=== PATIENT | female | born 1935 | race Caucasian/White ===

== ENCOUNTER 2016-07-30 21:54 | Inpatient (IN) | payer MEDICARE, OTHER ==
--- NOTE | 2016-07-30 22:48 | ED Physician Chart ---
Chief Complaint/HPI - Patient Information Date Seen:: 07/30/16 Time Seen:: 22:35 Chief Complaint:: agitation History of Present Illness:: becoming increasingly agitated at SNF. Allergies:: Allergies Allergy/AdvReac Type Severity Reaction Status Date / Time pneumococcal vaccine Allergy Verified 07/30/16 22:24 Historian:: EMS Review:: Transfer documents Reviewed Review of Systems - Review of Systems General/Constitutional: No fever, No chills Skin: No skin lesions Head: No headache, No light-headedness Eyes: No loss of vision, No pain ENT: No earache, No nasal drainage, No sore throat Cardio Vascular: No chest pain Pulmonary: No SOB GI: No nausea, No vomiting G/U: No dysuria, No frequency Musculoskeletal: No bone or joint pain Endocrine: No polyuria, No polydipsia Psychiatric: Prior psych history Hematopoietic: No bruising Allergic/Immuno: No urticaria, No angioedema Neurological: No syncope, No focal symptoms Past Medical History - Past Medical History Past Medical History: DM, PUD/GERD, Arthritis, Dementia, Other (dysphagia; Parkinson's disease) Family History: Other (unavailable) Social History: Care Facility Surgical History: other (unavailable) Psychiatricy History: Dementia Medication: Reviewed Family Medical History - Family Member Mother History Unknown: Yes Physical Exam - Physical Examination General/Constitutional: Awake Other Gen/Cons comments:: restless Head: Atraumatic Eyes: Lids, conjuctiva normal Skin: Nl inspection, No rash, No skin lesions, No ecchymosis ENMT: External ears, nose nl, TM canals nl, Nasal exam nl Other ENMT comments:: edentulous Neck: No nuchal rigidity Respiratory: Nl effort/Exclusion, Clear to Auscultation Cardio Vascular: RRR, No murmur, gallop, rubs, NL S1 S2 GI: No tenderness/rebounding/guarding, No organomegaly, No hernia, Normal BS's, Nondistended, No mass/bruits, No McBurney tenderness : No CVA tenderness Extremities: No tenderness or effusion, Full ROM Neuro/Psych: Alert/oriented, No focal deficits Misc: No paraspinal tenderness Labs/Radiology/EKG Results - Lab Results Results: Laboratory Results - last 24 hr 07/30/16 07/30/16 22:50 22:50 WBC 9.8 RBC 4.24 Hgb 12.5 Hct 36.2 MCV 85.5 MCH 29.6 MCHC Differential 34.6 RDW 13.7 Plt Count 250 D MPV 8.6 Neutrophils % 59.1 Lymphocytes % 32.9 Monocytes % 7.4 Eosinophils % 0.3 Basophils % 0.3 Sodium 137 Potassium 4.0 Chloride 103 Carbon Dioxide 26.5 Anion Gap 11.5 BUN 28 H Creatinine 0.8 Est GFR ( Amer) TNP Est GFR (Non-Af Amer) TNP BUN/Creatinine Ratio 35.0 Glucose 155 H Calcium 10.4 H Total Bilirubin 0.4 AST 23 ALT 15 Alkaline Phosphatase 70 Total Protein 7.6 Albumin 4.1 Globulin 3.5 Albumin/Globulin Ratio 1.2 - EKG Interpretations Rhythm: NSR [place]: normal Rate: 90 ED Septic Shock - . Is Septic Shock (SBP<90, OR Lactate>4 mmol\L) present?: No Reassessment (Disposition) - Reassessment Reassessment Condition:: Unchanged - Diagnosis Diagnosis:: agitation; dementia - Patient Disposition Admitted to:: [facility] Admitting Medical Physician:: Trevor Holland Admitting Psych Physician:: Patricia Caruso
[2016-07-30 22:55] LABS: RED BLOOD COUNT 4.24 Mil/cmm (3.80-5.20)
[2016-07-30 22:57] LABS: % BASOPHILS 0.3 % (0.0-2.0); % EOSINOPHILS 0.3 % (0.0-5.0); % LYMPHOCYTES 32.9 % (20.0-50.0); % MONOCYTES 7.4 % (2.0-10.0); % NEUTROPHILS 59.1 % (40.0-80.0); HEMATOCRIT 36.2 % (35.0-45.0); HEMOGLOBIN 12.5 gm/dL (11.7-16.1); MEAN CELL VOLUME 85.5 fl (81-100); MEAN CORPUSCULAR HEMOGLOBIN 29.6 pg (27.0-31.0); MEAN CORPUSCULAR HGB CONC 34.6 pg (28.0-36.0); MEAN PLATELET VOLUME 8.6 fl; NEUTROPHILE ABSOLUTE 5.9 Th/cmm (1.8-8.0); RED CELL DISTRIBUTION WIDTH 13.7 % (11.5-20.0); WHITE BLOOD COUNT 9.8 Th/cmm (4.8-10.8)
[2016-07-30 23:02] LABS: PLATELET COUNT 250 Th/cmm (150-400)
[2016-07-30 23:13] LABS: ALB/GLOB RATIO 1.2 (1.0-1.8); ALKALINE PHOSPHATASE 70 U/L (34-104); ANION GAP 11.5 (7.0-16.0); BILIRUBIN,TOTAL 0.4 mg/dL (0.3-1.0); BUN - UREA NITROGEN 28 mg/dL (7-25); CALCIUM SERUM 10.4 mg/dL (8.6-10.3); CARBON DIOXIDE 26.5 mEq/L (21.0-31.0); CHLORIDE 103 mEq/L (98-107); CREATININE - SERUM 0.8 mg/dL (0.6-1.2); GLUCOSE 155 mg/dL (70-105); SGOT 23 U/L (13-39); SGPT/ALT 15 U/L (7-52); SODIUM SERUM 137 mEq/L (136-145)
[2016-07-31] MEDS ORDERED: MINERAL OIL ENEMA 135 ML BOTTLE RC PRN (03:11)
[2016-07-31] MEDS ORDERED: Magnesium Hydroxide (MOM) 30 mL UDC PO PRN (03:11)
[2016-07-31 03:36] VITALS: BP 151/70
[2016-07-31] MEDS: INSULIN ASPART SLIDING SCALE 100 UNITS/ML UNIT SUBQ SCH ×4 (06:37→20:25)
[2016-07-31] MEDS ORDERED: INSULIN ASPART, RECOMBINANT 100 UNITS/ML SUBQ SCH (07:30)
[2016-07-31] MEDS: Vitamin D3 2,000 IU SGL PO SCH (09:32)
[2016-07-31] MEDS: Multivitamin Tab PO SCH (09:32)
[2016-07-31] MEDS: Rivastigmine 4.6 mg/24 hr Tdm TD SCH (09:32)
[2016-07-31] MEDS: INSULIN HUMAN ISOPHANE (NPH) 100 UNITS/ML SUBQ SCH ×2 (09:49→17:34)
--- NOTE | 2016-07-31 11:05 | History & Physical ---
PATIENT IDENTIFICATION: An 80-year-old female. REQUESTING PHYSICIAN: Dr. Caruso. REASON FOR ADMISSION: Medical management. HISTORY OF PRESENT ILLNESS: An 80-year-old resident of retirement sent to Emergency Room at [facility] for evaluation of increasing agitation after being evaluated by Emergency Room MD. The patient is advised to be admitted for psychiatric management and underlying dementia evaluation. PAST MEDICAL HISTORY: Remarkable for: 1. Alzheimer's type dementia. 2. Parkinson disease. 3. GERD. 4. Diabetes. 5. DJD. 6. Depression. 7. Chronic constipation. 8. Osteoporosis. MEDICATIONS: Tylenol, bisacodyl, Sinemet, vitamin D3, Depakote, Colace, famotidine, sliding scale insulin with NPH, lorazepam, magnesium sulfate, mineral oil, mirtazapine, oxybutynin, ____ Exelon patch and tramadol. ALLERGIES: THE PATIENT IS QUESTIONABLE ALLERGIC TO PNEUMOCOCCAL VACCINE. SOCIAL HISTORY: She is a resident of retirement. There is no documented smoking cigarette, alcohol or drug use. FAMILY MEDICAL HISTORY: Unavailable. REVIEW OF SYSTEMS: Unable to get meaningful history from the patient. PHYSICAL EXAMINATION: GENERAL: An 80-year-old lying in the bed without any acute distress. VITAL SIGNS: Temperature 97.8, pulse is 93, respiratory rate 18, blood pressure 151/70. SKIN: Warm to touch. HEENT: Normocephalic, atraumatic. Extraocular muscles are intact. Tongue was pink and coated. Absent upper and lower dentition noted. NECK: Supple, no JVD, no lymphadenopathy, thyromegaly. HEART: Both heart sounds are regular. Grade 2/6 systolic murmur noted. CHEST AND LUNGS: Equal in expansion with no expiratory wheezing. ABDOMEN: Soft. No guarding, no rigidity. Liver, spleen not palpable. No palpable mass. EXTREMITIES: No edema, no cyanosis. Diffuse osteoarthritic changes noted. NEUROLOGIC: Alert, awake. Follows simple commands. Decreased ____ upper and lower noted with some degree of spasticity. Unable to assess further detail examinations due to high risk for fall. AVAILABLE DIAGNOSTIC DATA: Remarkable for TSH of 7.21, calcium of 10.4, BUN and creatinine is 20 and 0.8. CBC is within normal limit. The patient's other diagnostic data are currently unavailable. CLINICAL IMPRESSION: 1. Acute exacerbation of psychotic disorder. 2. Alzheimer dementia. 3. Parkinson disease. 4. Diabetes mellitus. 5. Degenerative joint disease. 6. Urinary incontinence. 7. Chronic pain. 8. Osteoporosis. 9. Fall risk. 10. Declining self-care. PLAN: 1. Psychiatric evaluation and management deferred to psychiatrist. 2. Resume the home medicine as patient receiving. We will order Glucoscan a.c. and at bedtime with covering the blood through sliding scale, NovoLog insulin. The patient's psychiatric evaluation and management deferred to psychiatrist. The patient is to have fall precautions, Nutritional support and the patient will have T4, T3 and TSH to be rechecked again and based on that, we will decide if the patient needs to be placed on thyroid medication this time. Care plan has been reviewed and discussed with the staff. JOB# [id number]
--- NOTE | 2016-07-31 16:54 | History & Physical ---
IDENTIFYING INFORMATION: The patient is 80 years old female. CHIEF COMPLAINT: No answer. HISTORY OF PRESENT ILLNESS: The patient was sent from [facility] because of agitated behavior. She was aggressive towards peers, not responding to redirection. Unable to participate in a meaningful conversation or make safe plan for self-care. She is demented, confused. The patient was a very poor historian though she was alert. She was rambling, unable to participate in a meaningful conversation or make safe plan for self-care. PAST PSYCHIATRIC HISTORY: The patient has prior hospitalization here for similar reason. The patient has been on Remeron, Depakote, and Mirapex. ALLERGIES: THE PATIENT IS ALLERGIC TO PNEUMOCOCCAL VACCINE. No other known drug allergies. MEDICATIONS: She is on Pepcid. She is on Sinemet. She is also diabetic on insulin. She is on Namenda 5 mg daily, Remeron 15 mg at bedtime, Exelon patch daily, and tramadol for pain. FAMILY AND SOCIAL HISTORY: The patient is unable to give any information. She has been staying in a nursing facility. MENTAL STATUS EXAMINATION: The patient is appropriately dressed, not well groomed. Her mood is depressed. Affect is constricted. Thoughts are concrete. Speech is rambling, unable to carry on a conversation or make safe plan for self-care. She has been acting out, aggressive, irritable, hitting peers and staff, hard to redirect. Her long and short term memory is poor. Insight and judgment is impaired. Unable to answer questions about hallucination, suicide and homicide, but she was acting aggressive towards peers. Insight and judgment are impaired. IMPRESSION: AXIS I: Dementia with behavioral disturbances and depression. MEDICAL DIAGNOSES: Deferred to the medical doctor. I would continue medication, adjust medication as needed. ESTIMATED LENGTH OF STAY: 3-7 days. DISCHARGE CRITERIA: Decrease agitation, psychosis after discharge outpatient. [facility]# [id number]
[2016-08-01] MEDS: INSULIN ASPART SLIDING SCALE 100 UNITS/ML UNIT SUBQ SCH ×4 (06:52→21:55)
[2016-08-01 07:42] LABS: HEMATOCRIT 35.3 % (35.0-45.0); HEMOGLOBIN 12.2 gm/dL (11.7-16.1); MEAN CELL VOLUME 85.9 fl (81-100); MEAN CORPUSCULAR HEMOGLOBIN 29.7 pg (27.0-31.0); MEAN CORPUSCULAR HGB CONC 34.6 pg (28.0-36.0); MEAN PLATELET VOLUME 8.7 fl; PLATELET COUNT 233 Th/cmm (150-400); RED BLOOD COUNT 4.11 Mil/cmm (3.80-5.20); WHITE BLOOD COUNT 8.5 Th/cmm (4.8-10.8)
[2016-08-01 08:08] LABS: ALB/GLOB RATIO 1.2 (1.0-1.8); ALKALINE PHOSPHATASE 65 U/L (34-104); BILIRUBIN,TOTAL 0.6 mg/dL (0.3-1.0); BUN - UREA NITROGEN 32 mg/dL (7-25); BUN/CREATININE RATIO 35.6; CARBON DIOXIDE 23.9 mEq/L (21.0-31.0); CHLORIDE 109 mEq/L (98-107); CREATININE - SERUM 0.9 mg/dL (0.6-1.2); GLUCOSE 101 mg/dL (70-105); POTASSIUM SERUM 3.9 mEq/L (3.5-5.1); SGOT 21 U/L (13-39); SGPT/ALT 14 U/L (7-52); SODIUM SERUM 137 mEq/L (136-145)
[2016-08-01] MEDS: Rivastigmine 4.6 mg/24 hr Tdm TD SCH (08:29)
[2016-08-01] MEDS: Vitamin D3 2,000 IU SGL PO SCH (08:32)
[2016-08-01] MEDS: Multivitamin Tab PO SCH (08:34)
[2016-08-01] MEDS: INSULIN HUMAN ISOPHANE (NPH) 100 UNITS/ML SUBQ SCH ×2 (08:34→18:28)
[2016-08-01 09:00] LABS: EOSINOPHIL 3 % (0-5); NEUTROPHILS 33 % (40-80); TOTAL CELLS COUNTED 100
[2016-08-01 09:01] LABS: PLATELET ESTIMATE ADEQUATE (NORMAL); PLATELET MORPHOLOGY NORMAL (NORMAL)
--- NOTE | 2016-08-01 12:47 | General Progress Note ---
Subjective - Review of Systems Subjective: PATIENT IS SEEN AND EXAMINED. NO NEW EVENTS. Objective - Results Result Diagrams: 08/01/16 07:14 08/01/16 07:14 Recent Labs: Laboratory Last Values WBC 8.5 Th/cmm (4.8-10.8) 08/01/16 07:14 RBC 4.11 Mil/cmm (3.80-5.20) 08/01/16 07:14 Hgb 12.2 gm/dL (11.7-16.1) 08/01/16 07:14 Hct 35.3 % (35.0-45.0) 08/01/16 07:14 MCV 85.9 fl (81-100) 08/01/16 07:14 MCH 29.7 pg (27.0-31.0) 08/01/16 07:14 MCHC Differential 34.6 pg (28.0-36.0) 08/01/16 07:14 RDW 14.0 % (11.5-20.0) 08/01/16 07:14 Plt Count 233 Th/cmm (150-400) 08/01/16 07:14 MPV 8.7 fl 08/01/16 07:14 Neutrophils % 59.1 % (40.0-80.0) 07/30/16 22:50 Lymphocytes % 32.9 % (20.0-50.0) 07/30/16 22:50 Monocytes % 7.4 % (2.0-10.0) 07/30/16 22:50 Eosinophils % 0.3 % (0.0-5.0) 07/30/16 22:50 Basophils % 0.3 % (0.0-2.0) 07/30/16 22:50 Neutrophils (Manual) 33 % (40-80) L 08/01/16 07:14 Lymphocytes 45 % (20-50) 08/01/16 07:14 Monocytes 13 % (2-10) H 08/01/16 07:14 Eosinophils 3 % (0-5) 08/01/16 07:14 Atypical Lymphocytes 6 % 08/01/16 07:14 Platelet Estimate ADEQUATE (NORMAL) 08/01/16 07:14 Platelet Morphology NORMAL (NORMAL) 08/01/16 07:14 RBC Morph Micro Appear NORMAL (NORMAL) 08/01/16 07:14 Sodium 137 mEq/L (136-145) 08/01/16 07:14 Potassium 3.9 mEq/L (3.5-5.1) 08/01/16 07:14 Chloride 109 mEq/L (98-107) H 08/01/16 07:14 Carbon Dioxide 23.9 mEq/L (21.0-31.0) 08/01/16 07:14 Anion Gap 8.0 (7.0-16.0) 08/01/16 07:14 BUN 32 mg/dL (7-25) H 08/01/16 07:14 Creatinine 0.9 mg/dL (0.6-1.2) 08/01/16 07:14 Est GFR ( Amer) TNP 08/01/16 07:14 Est GFR (Non-Af Amer) TNP 08/01/16 07:14 BUN/Creatinine Ratio 35.6 08/01/16 07:14 Glucose 101 mg/dL (70-105) 08/01/16 07:14 POC Glucose 102 MG/DL (70 - 105) 08/01/16 11:07 Calcium 10.0 mg/dL (8.6-10.3) 08/01/16 07:14 Total Bilirubin 0.6 mg/dL (0.3-1.0) 08/01/16 07:14 AST 21 U/L (13-39) 08/01/16 07:14 ALT 14 U/L (7-52) 08/01/16 07:14 Alkaline Phosphatase 65 U/L (34-104) 08/01/16 07:14 Total Protein 7.1 gm/dL (6.0-8.3) 08/01/16 07:14 Albumin 3.8 gm/dL (3.7-5.3) 08/01/16 07:14 Globulin 3.3 gm/dL 08/01/16 07:14 Albumin/Globulin Ratio 1.2 (1.0-1.8) 08/01/16 07:14 Free T4 1.22 ng/dL (0.82-1.77) 07/31/16 12:46 Thyroxine (T4) 10.22 ug/dl (6.09-12.23) 07/31/16 09:35 TSH 7.21 uIU/ml (0.34-5.60) H 07/30/16 22:50 RPR NONREACTIVE (NONREACTIVE) 07/30/16 22:50 - Physical Exam Vitals and I&O: Vital Signs Temp 98.1 F 07/31/16 19:58 Pulse 70 07/31/16 19:58 Resp 20 07/31/16 19:58 BP 130/61 07/31/16 19:58 Pulse Ox 97 07/31/16 19:58 Intake & Output 07/31/16 08/01/16 08/01/16 18:59 06:59 18:59 Intake Total 600 240 Balance 600 240 Intake: Oral 600 240 Other: # Voids 3 1 # Bowel Movements 0 Active Medications: Current Medications Acetaminophen (Tylenol) 650 mg PO Q4HR PRN PRN Reason: Pain (Mild) Stop: 09/29/16 03:10 Bisacodyl (Dulcolax 10 Mg Supp) 10 mg RC DAILY PRN PRN Reason: Constipation Stop: 09/29/16 03:10 Carbidopa/Levodopa (Sinemet 25mg-100 Mg) 1 tab PO BID [facility] Stop: 09/29/16 08:59 Last Admin: 08/01/16 08:32 Dose: Not Given Divalproex Sodium (Depakote Sprinkle) 250 mg PO BID [facility] PRN Reason: Protocol Stop: 09/29/16 08:59 Last Admin: 08/01/16 08:32 Dose: Not Given Docusate Sodium (Colace) 200 mg PO BID [facility] Stop: 09/29/16 08:59 Last Admin: 08/01/16 08:32 Dose: Not Given Famotidine (Pepcid) 20 mg PO BID [facility] Stop: 09/29/16 08:59 Last Admin: 08/01/16 08:32 Dose: Not Given Insulin Aspart (Novolog Insulin Sliding Scale) 0 units SUBQ ACHS [facility] PRN Reason: Protocol Stop: 09/29/16 07:29 Last Admin: 08/01/16 11:18 Dose: Not Given Insulin Human NPH (Novolin N) 15 units SUBQ BID [facility] PRN Reason: Protocol Stop: 09/29/16 08:59 Last Admin: 08/01/16 08:34 Dose: Not Given Lorazepam (Ativan) 0.5 mg PO BID [facility] PRN Reason: Protocol Stop: 09/30/16 08:59 Last Admin: 08/01/16 08:34 Dose: Not Given Magnesium Hydroxide (Milk Of Magnesia) 30 ml PO HS PRN PRN Reason: Constipation Stop: 09/29/16 03:10 Memantine (Namenda) 5 mg PO DAILY [facility] Stop: 09/29/16 08:59 Last Admin: 08/01/16 08:34 Dose: Not Given Mineral Oil (Fleet Mineral Oil) 135 ml RC Q48HR PRN PRN Reason: Constipation Stop: 09/29/16 03:10 Mirtazapine (Remeron) 15 mg PO HS [facility] PRN Reason: Protocol Stop: 09/29/16 20:59 Last Admin: 07/31/16 20:25 Dose: 15 mg Multivitamins/Vitamin C (Theragran) 1 tab PO DAILY [facility] Stop: 09/29/16 08:59 Last Admin: 08/01/16 08:34 Dose: Not Given Oxybutynin Chloride (Ditropan) 5 mg PO HS [facility] Stop: 09/29/16 20:59 Last Admin: 07/31/16 20:25 Dose: 5 mg Pramipexole Dihydrochloride (Mirapex) 0.5 mg PO HS [facility] PRN Reason: Protocol Stop: 09/29/16 20:59 Last Admin: 07/31/16 20:25 Dose: 0.5 mg Rivastigmine (Exelon 4.6 Mg/24 Hr Tdm) 1 patch TD DAILY [facility] Stop: 09/29/16 08:59 Last Admin: 08/01/16 08:29 Dose: 1 patch Tramadol HCl (Ultram) 50 mg PO BID [facility] Stop: 09/29/16 08:59 Last Admin: 08/01/16 08:34 Dose: Not Given Vitamin D (Vitamin D3) 2,000 iu PO DAILY [facility] Stop: 09/29/16 08:59 Last Admin: 08/01/16 08:32 Dose: Not Given Zolpidem Tartrate (Ambien) 5 mg PO HS PRN PRN Reason: Insomnia Stop: 09/29/16 04:13 General: Alert, Cooperative HEENT: Atraumatic, EOMI Neck: Supple, JVD Cardiovascular: Regular rate, Normal S1, Normal S2 Lungs: Clear to auscultation Abdomen: Bowel sounds, Soft Extremities: Other (diffuse DJD) Psych/Mental Status: Other (labile moods) Assessment/Plan - Problem List Patient Problems: All Active Problems Agitation (Acute) 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 FALL RISK DEBILITY. - Plan Plan: MONITOR GLUCOSE AND VITALS MONITOR BEHAVIOR GENERAL NURSING CARE MEDICAL THERAPY FOR MEDICAL ILLNESS PSYCH MEDS PSYCH FOLLOW UP CARE PLAN REVIEWED FALL PRECAUTIONS.
[2016-08-01 18:45] LABS: HEMATOCRIT 38.7 % (35.0-45.0); MEAN CELL VOLUME 87.6 fl (81-100); MEAN CORPUSCULAR HEMOGLOBIN 29.5 pg (27.0-31.0); MEAN CORPUSCULAR HGB CONC 33.7 pg (28.0-36.0); MEAN PLATELET VOLUME 8.8 fl; PLATELET COUNT 271 Th/cmm (150-400); RED BLOOD COUNT 4.41 Mil/cmm (3.80-5.20); WHITE BLOOD COUNT 9.7 Th/cmm (4.8-10.8)
[2016-08-01 18:46] LABS: ALB/GLOB RATIO 1.2 (1.0-1.8); ALKALINE PHOSPHATASE 73 U/L (34-104); ANION GAP 10.9 (7.0-16.0); BILIRUBIN,TOTAL 0.6 mg/dL (0.3-1.0); BUN - UREA NITROGEN 31 mg/dL (7-25); BUN/CREATININE RATIO 38.8; CALCIUM SERUM 10.6 mg/dL (8.6-10.3); CARBON DIOXIDE 24.1 mEq/L (21.0-31.0); CHLORIDE 107 mEq/L (98-107); CREATININE - SERUM 0.8 mg/dL (0.6-1.2); GLUCOSE 115 mg/dL (70-105); SGOT 19 U/L (13-39); SGPT/ALT 16 U/L (7-52); SODIUM SERUM 138 mEq/L (136-145)
[2016-08-01 19:07] LABS: BAND NEUTROPHILE 2 % (0-10); BASOPHIL 1 % (0-3); NEUTROPHILS 38 % (40-80); TOTAL CELLS COUNTED 100
[2016-08-01 19:09] LABS: PLATELET ESTIMATE ADEQUATE (NORMAL); PLATELET MORPHOLOGY NORMAL (NORMAL)
[2016-08-01 19:32] LABS: URINE BILIRUBIN NEGATIVE (NEGATIVE); URINE COLOR YELLOW; URINE GLUCOSE (UA) NEGATIVE (NEGATIVE); URINE KETONE 40 mg/dL (NEGATIVE)
[2016-08-01 19:33] LABS: URINE BLOOD LARGE (NEGATIVE); URINE PH 8.5; URINE PROTEIN >300 mg/dL (NEGATIVE); URINE UROBILINOGEN 0.2 E.U./dL (0.2 - 1.0)
[2016-08-01 19:34] LABS: URINE BACTERIA MANY /hpf (NONE SEEN); URINE EPITHELIAL CELLS FEW /lpf (FEW)
[2016-08-01 19:35] LABS: URINE WBC >100 /hpf (0-5)
--- NOTE | 2016-08-02 00:16 | Progress Notes ---
SUBJECTIVE: The patient was seen, chart reviewed, and discussed with staff. The patient is currently in the hospital, agitated, aggressive, not responding to redirection, demented, confused, poor historian, rambling, unable to participate in any meaningful conversation. On [id number], the patient remains confused and disoriented. Does not really know what is going on, not really participating in interview whatsoever, a poor historian, requiring a lot of prompting for ADLs, requiring prompting for eating, still remains impulsive, unpredictable, still with acting up behaviors. Not safe. ASSESSMENT: The patient remains symptomatic. Still aggressive, agitated, impulsive, unpredictable, and highly confused. PLAN: Continue to monitor. We will continue to adjust her medications. Given the severity of the patient's current symptoms, she is not safe for a lower level of care. JOB# [id number]
[2016-08-02] MEDS: INSULIN ASPART SLIDING SCALE 100 UNITS/ML UNIT SUBQ SCH ×4 (06:39→21:20)
[2016-08-02] MEDS: Rivastigmine 4.6 mg/24 hr Tdm TD SCH (08:54)
--- NOTE | 2016-08-02 09:26 | Diagnostic Imaging Report ---
History: Chest pain and shortness of breath Findings: Heart size is enlarged. There is evidence of prior coronary artery surgery. There are no infiltrates or effusions. Impression: No acute cardiopulmonary pathology.
[2016-08-02] MEDS: INSULIN HUMAN ISOPHANE (NPH) 100 UNITS/ML SUBQ SCH ×2 (12:01→17:39)
[2016-08-02] MEDS: Vitamin D3 2,000 IU SGL PO SCH (12:01)
[2016-08-02] MEDS: Multivitamin Tab PO SCH (12:02)
--- NOTE | 2016-08-02 23:48 | Progress Notes ---
SUBJECTIVE: The patient seen, chart reviewed, discussed with staff. The patient is rambling nonsensically. Still confused, does not know what is going on. Unable to participate in any meaningful conversations about self-care, highly disoriented needing prompting for ADLs, needing prompting for eating, still impulsive. ASSESSMENT: The patient remains symptomatic, gravely disabled, still agitated at times, confused. PLAN: Continue to monitor. Continue to adjust medications. Due to the severity of the patient's symptoms, she is not safe for a lower level of care. At this time, the patient noted to have UTI. We will treat according. JOB# [id number]
[2016-08-03] MEDS: INSULIN ASPART SLIDING SCALE 100 UNITS/ML UNIT SUBQ SCH ×3 (06:36→21:03)
--- NOTE | 2016-08-03 08:46 | General Progress Note ---
Subjective - Review of Systems Subjective: PATIENT IS SEEN AND EXAMINED. CHART REVIEWED. ABLE TO EAT PO WELL. NOW ON CIPRO. Objective - Results Result Diagrams: 08/01/16 18:25 08/01/16 18:25 Recent Labs: Laboratory Last Values WBC 9.7 Th/cmm (4.8-10.8) 08/01/16 18: RBC 4.41 Mil/cmm (3.80-5.20) 08/01/16 18: Hgb 13.0 gm/dL (11.7-16.1) 08/01/16 18: Hct 38.7 % (35.0-45.0) 08/01/16 18: MCV 87.6 fl (81-100) 08/01/16 18: MCH 29.5 pg (27.0-31.0) 08/01/16 18: MCHC Differential 33.7 pg (28.0-36.0) 08/01/16 18: RDW 14.0 % (11.5-20.0) 08/01/16 18: Plt Count 271 Th/cmm (150-400) 08/01/16 18:25 MPV 8.8 fl 08/01/16 18: Neutrophils % 59.1 % (40.0-80.0) 07/30/16 22:50 Band Neutrophils % 2 % (0-10) 08/01/16 18:25 Lymphocytes % 32.9 % (20.0-50.0) 07/30/16 22:50 Monocytes % 7.4 % (2.0-10.0) 07/30/16 22:50 Eosinophils % 0.3 % (0.0-5.0) 07/30/16 22:50 Basophils % 0.3 % (0.0-2.0) 07/30/16 22:50 Neutrophils (Manual) 38 % (40-80) L 08/01/16 18: Lymphocytes 48 % (20-50) 08/01/16 18:25 Monocytes 4 % (2-10) 08/01/16 18:25 Eosinophils 3 % (0-5) 08/01/16 07:14 Basophils 1 % (0-3) 08/01/16 18: Atypical Lymphocytes 7 % 08/01/16 18:25 Platelet Estimate ADEQUATE (NORMAL) 08/01/16 18:25 Platelet Morphology NORMAL (NORMAL) 08/01/16 18:25 RBC Morph Micro Appear NORMAL (NORMAL) 08/01/16 18:25 Sodium 138 mEq/L (136-145) 08/01/16 18:25 Potassium 4.0 mEq/L (3.5-5.1) 08/01/16 18:25 Chloride 107 mEq/L (98-107) 08/01/16 18:25 Carbon Dioxide 24.1 mEq/L (21.0-31.0) 08/01/16 18:25 Anion Gap 10.9 (7.0-16.0) 08/01/16 18:25 BUN 31 mg/dL (7-25) H 08/01/16 18:25 Creatinine 0.8 mg/dL (0.6-1.2) 08/01/16 18:25 Est GFR ( Amer) TNP 08/01/16 18:25 Est GFR (Non-Af Amer) TNP 08/01/16 18:25 BUN/Creatinine Ratio 38.8 08/01/16 18:25 Glucose 115 mg/dL (70-105) H 08/01/16 18:25 POC Glucose 118 MG/DL (70 - 105) H 08/03/16 06:21 Calcium 10.6 mg/dL (8.6-10.3) H 08/01/16 18:25 Total Bilirubin 0.6 mg/dL (0.3-1.0) 08/01/16 18:25 AST 19 U/L (13-39) 08/01/16 18:25 ALT 16 U/L (7-52) 08/01/16 18:25 Alkaline Phosphatase 73 U/L (34-104) 08/01/16 18:25 Total Protein 7.7 gm/dL (6.0-8.3) 08/01/16 18:25 Albumin 4.2 gm/dL (3.7-5.3) 08/01/16 18:25 Globulin 3.5 gm/dL 08/01/16 18:25 Albumin/Globulin Ratio 1.2 (1.0-1.8) 08/01/16 18:25 Free T4 1.22 ng/dL (0.82-1.77) 07/31/16 12:46 Thyroxine (T4) 10.22 ug/dl (6.09-12.23) 07/31/16 09:35 TSH 7.21 uIU/ml (0.34-5.60) H 07/30/16 22:50 Urine Source CATH 08/01/16 18:15 Urine Color YELLOW 08/01/16 18:15 Urine Clarity CLOUDY (CLEAR) H 08/01/16 18:15 Urine pH 8.5 08/01/16 18:15 Ur Specific [place] 1.025 (1.005-1.030) 08/01/16 18:15 Urine Protein >300 mg/dL (NEGATIVE) H 08/01/16 18:15 Urine Glucose (UA) NEGATIVE mg/dL (NEGATIVE) 08/01/16 18:15 Urine Ketones 40 mg/dL (NEGATIVE) H 08/01/16 18:15 Urine Blood LARGE (NEGATIVE) H 08/01/16 18:15 Urine Nitrate POSITIVE (NEGATIVE) H 08/01/16 18:15 Urine Bilirubin NEGATIVE (NEGATIVE) 08/01/16 18:15 Urine Urobilinogen 0.2 E.U./dL (0.2 - 1.0) 08/01/16 18:15 Ur Leukocyte Esterase LARGE (NEGATIVE) H 08/01/16 18:15 Urine RBC 10-25 /hpf (0-5) H 08/01/16 18:15 Urine WBC >100 /hpf (0-5) H 08/01/16 18:15 Ur Epithelial Cells FEW /lpf (FEW) 08/01/16 18:15 Urine Bacteria MANY /hpf (NONE SEEN) 08/01/16 18:15 RPR NONREACTIVE (NONREACTIVE) 07/30/16 22:50 - Physical Exam Vitals and I&O: Vital Signs Temp 97.4 F 08/03/16 06:34 Pulse 69 08/03/16 06:34 Resp 18 08/03/16 06:34 BP 125/76 08/03/16 06:34 Pulse Ox 96 08/03/16 06:34 Intake & Output 08/02/16 08/03/16 08/03/16 18:59 06:59 18:59 Intake Total 500 0 Balance 500 0 Intake: Oral 500 0 Other: # Voids 3 3 # Bowel Movements 1 Active Medications: Current Medications Acetaminophen (Tylenol) 650 mg PO Q4HR PRN PRN Reason: Pain (Mild) Stop: 09/29/16 03:10 Bisacodyl (Dulcolax 10 Mg Supp) 10 mg RC DAILY PRN PRN Reason: Constipation Stop: 09/29/16 03:10 Last Admin: 08/02/16 12:54 Dose: 10 mg Carbidopa/Levodopa (Sinemet 25mg-100 Mg) 1 tab PO BID [facility] Stop: 09/29/16 08:59 Last Admin: 08/02/16 18:24 Dose: Not Given Ciprofloxacin (Cipro) 250 mg PO BID [facility] Stop: 08/11/16 09:00 Last Admin: 08/02/16 18:24 Dose: Not Given Divalproex Sodium (Depakote Sprinkle) 250 mg PO BID [facility] PRN Reason: Protocol Stop: 09/29/16 08:59 Last Admin: 08/02/16 17:38 Dose: Not Given Docusate Sodium (Colace) 200 mg PO BID [facility] Stop: 09/29/16 08:59 Last Admin: 08/02/16 17:39 Dose: Not Given Famotidine (Pepcid) 20 mg PO BID [facility] Stop: 09/29/16 08:59 Last Admin: 08/02/16 17:39 Dose: Not Given Insulin Aspart (Novolog Insulin Sliding Scale) 0 units SUBQ ACHS [facility] PRN Reason: Protocol Stop: 09/29/16 07:29 Last Admin: 08/03/16 06:36 Dose: Not Given Insulin Human NPH (Novolin N) 15 units SUBQ BID [facility] PRN Reason: Protocol Stop: 09/29/16 08:59 Last Admin: 08/02/16 17:39 Dose: Not Given Lorazepam (Ativan) 0.5 mg PO BID [facility] PRN Reason: Protocol Stop: 09/30/16 08:59 Last Admin: 08/02/16 18:24 Dose: Not Given Magnesium Hydroxide (Milk Of Magnesia) 30 ml PO HS PRN PRN Reason: Constipation Stop: 09/29/16 03:10 Memantine (Namenda) 5 mg PO DAILY [facility] Stop: 09/29/16 08:59 Last Admin: 08/02/16 12:02 Dose: Not Given Mineral Oil (Fleet Mineral Oil) 135 ml RC Q48HR PRN PRN Reason: Constipation Stop: 09/29/16 03:10 Mirtazapine (Remeron) 15 mg PO HS [facility] PRN Reason: Protocol Stop: 09/29/16 20:59 Last Admin: 08/02/16 21:21 Dose: Not Given Multivitamins/Vitamin C (Theragran) 1 tab PO DAILY [facility] Stop: 09/29/16 08:59 Last Admin: 08/02/16 12:02 Dose: Not Given Oxybutynin Chloride (Ditropan) 5 mg PO HS [facility] Stop: 09/29/16 20:59 Last Admin: 08/02/16 21:22 Dose: Not Given Pramipexole Dihydrochloride (Mirapex) 0.5 mg PO HS [facility] PRN Reason: Protocol Stop: 09/29/16 20:59 Last Admin: 08/02/16 21:22 Dose: Not Given Rivastigmine (Exelon 4.6 Mg/24 Hr Tdm) 1 patch TD DAILY [facility] Stop: 09/29/16 08:59 Last Admin: 08/02/16 08:54 Dose: 1 patch Tramadol HCl (Ultram) 50 mg PO BID [facility] Stop: 09/29/16 08:59 Last Admin: 08/02/16 18:25 Dose: Not Given Vitamin D (Vitamin D3) 2,000 iu PO DAILY [facility] Stop: 09/29/16 08:59 Last Admin: 08/02/16 12:01 Dose: Not Given Zolpidem Tartrate (Ambien) 5 mg PO HS PRN PRN Reason: Insomnia Stop: 09/29/16 04:13 General: Alert, No acute distress HEENT: Atraumatic, PERRLA, EOMI Neck: Supple, JVD Cardiovascular: Regular rate, Normal S1, Normal S2, Systolic murmurs Lungs: Clear to auscultation Abdomen: Bowel sounds, Soft Extremities: Other (no edema.) Psych/Mental Status: Other (labile mood.) Assessment/Plan - Problem List Patient Problems: All Active Problems Agitation (Acute) 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 UTI COMPLICATED TYPE. POOR PO INTAKE. URINARY INCONTENANCE. FALL RISK DEBILITY. - Plan Plan: MONITOR GLUCOSE AND VITALS MONITOR BEHAVIOR GENERAL NURSING CARE. PO CIPRO. ADD LACTULOSE TO AVOID CONSTIPATION. APPETITE STIMULANT. MEDICAL THERAPY FOR MEDICAL ILLNESS PSYCH MEDS PSYCH FOLLOW UP CARE PLAN REVIEWED FALL PRECAUTIONS.
[2016-08-03] MEDS: Vitamin D3 2,000 IU SGL PO SCH (10:16)
[2016-08-03] MEDS: INSULIN HUMAN ISOPHANE (NPH) 100 UNITS/ML SUBQ SCH ×2 (10:17→16:58)
[2016-08-03] MEDS: Rivastigmine 4.6 mg/24 hr Tdm TD SCH (10:18)
[2016-08-03] MEDS: Multivitamin Tab PO SCH (10:18)
[2016-08-03] MEDS: Lactulose 10 Gm/15 mL 30mL UDC PO SCH (10:18)
--- NOTE | 2016-08-04 06:52 | Progress Notes ---
Case was discussed with staff of the patient, reviewed records. The patient has been refusing to eat, refusing to take her medication this morning. I tried to talk to her. She would not respond to me. She has been weak. I am not sure if she needs to be transferred to the medical floor. She continues to have poor insight. Unable to participate in meaningful conversation or make safe plan for self-care. She is currently on Depakote 250 mg twice a day, insulin, lactulose, and Namenda 5 mg daily, Remeron 15 mg at bedtime and Exelon patch, Mirapex, and we will try to persuade the patient to take her medication. She continues to refuse, so we may have to her. We will continue to work with the patient in group therapy, milieu therapy, and adjust the medication as needed. JOB# [id number]
[2016-08-04] MEDS: INSULIN ASPART SLIDING SCALE 100 UNITS/ML UNIT SUBQ SCH ×4 (07:02→21:03)
[2016-08-04] MEDS: Vitamin D3 2,000 IU SGL PO SCH (10:59)
[2016-08-04] MEDS: INSULIN HUMAN ISOPHANE (NPH) 100 UNITS/ML SUBQ SCH ×2 (11:00→17:47)
[2016-08-04] MEDS: Lactulose 10 Gm/15 mL 30mL UDC PO SCH (11:00)
[2016-08-04] MEDS: Multivitamin Tab PO SCH (11:01)
[2016-08-04] MEDS: Rivastigmine 4.6 mg/24 hr Tdm TD SCH (11:01)
--- NOTE | 2016-08-05 02:41 | Progress Notes ---
Case was discussed with staff of the patient, reviewed records. The patient has been refusing medication at times, not all of it. She is eating better. Now she is eating solid food, but she has to be fed. She continues to be unable to participate in meaningful conversation or make safe plan for self care. She is still unpredictable, impulsive and needing redirection. We changed her Depakote to sprinkle, so she can take it and she is on Exelon patch and Namenda 5 mg daily, Remeron 50 mg at bedtime and so far no side effects with the medication, no sedation, no nausea and we will continue to work with the patient in group therapy, milieu therapy and adjust medications ____. JOB# [id number]
[2016-08-05] MEDS: INSULIN ASPART SLIDING SCALE 100 UNITS/ML UNIT SUBQ SCH ×4 (06:31→20:34)
[2016-08-05] MEDS: Vitamin D3 2,000 IU SGL PO SCH (11:36)
[2016-08-05] MEDS: INSULIN HUMAN ISOPHANE (NPH) 100 UNITS/ML SUBQ SCH ×2 (11:36→18:10)
[2016-08-05] MEDS: Lactulose 10 Gm/15 mL 30mL UDC PO SCH (11:37)
[2016-08-05] MEDS: Multivitamin Tab PO SCH (11:37)
[2016-08-05] MEDS: Rivastigmine 4.6 mg/24 hr Tdm TD SCH (12:42)
--- NOTE | 2016-08-05 23:35 | Progress Notes ---
Case discussed with staff of the patient, reviewed records. The patient has been refusing medications; however, she gets it sometimes, sometimes she refuses it. The staff has been trying to persuade her. The patient is still unable to participate in meaningful conversation or make safe plan for self-care. Continues to be confused, demented, unable to participate in meaningful conversation or make safe plan for self-care, and so far, no side effects with the medication, no sedation, no nausea, no extrapyramidal symptoms. The patient has been getting the Depakote Sprinkles and that she is taking and she is on Namenda and Remeron, which she refuses sometimes. She gets the Exelon in a patch and no side effects so far. We will continue to work with the patient in group therapy, milieu therapy and adjust the medications as needed. JOB# [id number]
[2016-08-06] MEDS: INSULIN ASPART SLIDING SCALE 100 UNITS/ML UNIT SUBQ SCH ×4 (06:42→20:44)
--- NOTE | 2016-08-06 08:22 | General Progress Note ---
Subjective - Review of Systems Subjective: PATIENT IS SEEN AND EXAMINED. CHART REVIEWED. NO NEW EVENTS. Objective - Results Result Diagrams: 08/01/16 18:25 08/01/16 18:25 Recent Labs: Laboratory Last Values WBC 9.7 Th/cmm (4.8-10.8) 08/01/16 18:25 RBC 4.41 Mil/cmm (3.80-5.20) 08/01/16 18: Hgb 13.0 gm/dL (11.7-16.1) 08/01/16 18: Hct 38.7 % (35.0-45.0) 08/01/16 18: MCV 87.6 fl (81-100) 08/01/16 18: MCH 29.5 pg (27.0-31.0) 08/01/16 18: MCHC Differential 33.7 pg (28.0-36.0) 08/01/16 18: RDW 14.0 % (11.5-20.0) 08/01/16 18: Plt Count 271 Th/cmm (150-400) 08/01/16 18:25 MPV 8.8 fl 08/01/16 18: Neutrophils % 59.1 % (40.0-80.0) 07/30/16 22:50 Band Neutrophils % 2 % (0-10) 08/01/16 18: Lymphocytes % 32.9 % (20.0-50.0) 07/30/16 22:50 Monocytes % 7.4 % (2.0-10.0) 07/30/16 22:50 Eosinophils % 0.3 % (0.0-5.0) 07/30/16 22:50 Basophils % 0.3 % (0.0-2.0) 07/30/16 22:50 Neutrophils (Manual) 38 % (40-80) L 08/01/16 18: Lymphocytes 48 % (20-50) 08/01/16 18: Monocytes 4 % (2-10) 08/01/16 18:25 Eosinophils 3 % (0-5) 08/01/16 07:14 Basophils 1 % (0-3) 08/01/16 18: Atypical Lymphocytes 7 % 08/01/16 18: Platelet Estimate ADEQUATE (NORMAL) 08/01/16 18:25 Platelet Morphology NORMAL (NORMAL) 08/01/16 18:25 RBC Morph Micro Appear NORMAL (NORMAL) 08/01/16 18:25 Sodium 138 mEq/L (136-145) 08/01/16 18:25 Potassium 4.0 mEq/L (3.5-5.1) 08/01/16 18:25 Chloride 107 mEq/L (98-107) 08/01/16 18:25 Carbon Dioxide 24.1 mEq/L (21.0-31.0) 08/01/16 18:25 Anion Gap 10.9 (7.0-16.0) 08/01/16 18:25 BUN 31 mg/dL (7-25) H 08/01/16 18:25 Creatinine 0.8 mg/dL (0.6-1.2) 08/01/16 18:25 Est GFR ( Amer) TNP 08/01/16 18:25 Est GFR (Non-Af Amer) TNP 08/01/16 18:25 BUN/Creatinine Ratio 38.8 08/01/16 18:25 Glucose 115 mg/dL (70-105) H 08/01/16 18:25 POC Glucose 104 MG/DL (70 - 105) 08/06/16 06:27 Calcium 10.6 mg/dL (8.6-10.3) H 08/01/16 18:25 Total Bilirubin 0.6 mg/dL (0.3-1.0) 08/01/16 18:25 AST 19 U/L (13-39) 08/01/16 18:25 ALT 16 U/L (7-52) 08/01/16 18:25 Alkaline Phosphatase 73 U/L (34-104) 08/01/16 18:25 Total Protein 7.7 gm/dL (6.0-8.3) 08/01/16 18:25 Albumin 4.2 gm/dL (3.7-5.3) 08/01/16 18:25 Globulin 3.5 gm/dL 08/01/16 18:25 Albumin/Globulin Ratio 1.2 (1.0-1.8) 08/01/16 18:25 Free T4 1.22 ng/dL (0.82-1.77) 07/31/16 12:46 Thyroxine (T4) 10.22 ug/dl (6.09-12.23) 07/31/16 09:35 TSH 7.21 uIU/ml (0.34-5.60) H 07/30/16 22:50 Urine Source CATH 08/01/16 18:15 Urine Color YELLOW 08/01/16 18:15 Urine Clarity CLOUDY (CLEAR) H 08/01/16 18:15 Urine pH 8.5 08/01/16 18:15 Ur Specific [place] 1.025 (1.005-1.030) 08/01/16 18:15 Urine Protein >300 mg/dL (NEGATIVE) H 08/01/16 18:15 Urine Glucose (UA) NEGATIVE mg/dL (NEGATIVE) 08/01/16 18:15 Urine Ketones 40 mg/dL (NEGATIVE) H 08/01/16 18:15 Urine Blood LARGE (NEGATIVE) H 08/01/16 18:15 Urine Nitrate POSITIVE (NEGATIVE) H 08/01/16 18:15 Urine Bilirubin NEGATIVE (NEGATIVE) 08/01/16 18:15 Urine Urobilinogen 0.2 E.U./dL (0.2 - 1.0) 08/01/16 18:15 Ur Leukocyte Esterase LARGE (NEGATIVE) H 08/01/16 18:15 Urine RBC 10-25 /hpf (0-5) H 08/01/16 18:15 Urine WBC >100 /hpf (0-5) H 08/01/16 18:15 Ur Epithelial Cells FEW /lpf (FEW) 08/01/16 18:15 Urine Bacteria MANY /hpf (NONE SEEN) 08/01/16 18:15 RPR NONREACTIVE (NONREACTIVE) 07/30/16 22:50 - Physical Exam Vitals and I&O: Vital Signs Temp 97.4 F 08/05/16 14:00 Pulse 57 08/05/16 14:00 Resp 18 08/05/16 14:00 BP 118/56 08/05/16 14:00 Pulse Ox 97 08/05/16 14:00 Intake & Output 08/05/16 08/06/16 08/06/16 18:59 06:59 18:59 Intake Total 120 120 Balance 120 120 Weight (lbs) 41.413 kg Intake: Oral 120 120 Other: # Voids 2 3 # Bowel Movements 0 Active Medications: Current Medications Acetaminophen (Tylenol) 650 mg PO Q4HR PRN PRN Reason: Pain (Mild) Stop: 09/29/16 03:10 Bisacodyl (Dulcolax 10 Mg Supp) 10 mg RC DAILY PRN PRN Reason: Constipation Stop: 09/29/16 03:10 Last Admin: 08/02/16 12:54 Dose: 10 mg Carbidopa/Levodopa (Sinemet 25mg-100 Mg) 1 tab PO BID [facility] Stop: 09/29/16 08:59 Last Admin: 08/05/16 18:10 Dose: Not Given Ciprofloxacin (Cipro) 250 mg PO BID [facility] Stop: 08/11/16 09:00 Last Admin: 08/05/16 18:10 Dose: Not Given Divalproex Sodium (Depakote Sprinkle) 250 mg PO BID NUSRAT PRN Reason: Protocol Stop: 09/29/16 08:59 Last Admin: 08/05/16 18:10 Dose: Not Given Docusate Sodium (Colace) 200 mg PO BID [facility] Stop: 09/29/16 08:59 Last Admin: 08/05/16 18:10 Dose: Not Given Famotidine (Pepcid) 20 mg PO BID [facility] Stop: 09/29/16 08:59 Last Admin: 08/05/16 18:10 Dose: Not Given Insulin Aspart (Novolog Insulin Sliding Scale) 0 units SUBQ ACHS [facility] PRN Reason: Protocol Stop: 09/29/16 07:29 Last Admin: 08/06/16 06:42 Dose: Not Given Insulin Human NPH (Novolin N) 15 units SUBQ BID NUSRAT PRN Reason: Protocol Stop: 09/29/16 08:59 Last Admin: 08/05/16 18:10 Dose: Not Given Lactulose (Cephulac) 30 gm PO DAILY [facility] Stop: 10/02/16 08:59 Last Admin: 08/05/16 11:37 Dose: Not Given Lorazepam (Ativan) 0.5 mg PO Q6HR PRN; Protocol PRN Reason: Anxiety Stop: 10/03/16 12:34 Magnesium Hydroxide (Milk Of Magnesia) 30 ml PO HS PRN PRN Reason: Constipation Stop: 09/29/16 03:10 Megestrol Acetate (Megace) 400 mg PO DAILY NUSRAT PRN Reason: Protocol Stop: 10/02/16 08:59 Last Admin: 08/05/16 12:42 Dose: Not Given Memantine (Namenda) 5 mg PO DAILY NUSRAT Stop: 09/29/16 08:59 Last Admin: 08/05/16 11:37 Dose: Not Given Mineral Oil (Fleet Mineral Oil) 135 ml RC Q48HR PRN PRN Reason: Constipation Stop: 09/29/16 03:10 Mirtazapine (Remeron) 15 mg PO HS NUSRAT PRN Reason: Protocol Stop: 09/29/16 20:59 Last Admin: 08/05/16 20:52 Dose: 15 mg Multivitamins/Vitamin C (Theragran) 1 tab PO DAILY NUSRAT Stop: 09/29/16 08:59 Last Admin: 08/05/16 11:37 Dose: Not Given Oxybutynin Chloride (Ditropan) 5 mg PO HS NUSRAT Stop: 09/29/16 20:59 Last Admin: 08/05/16 20:52 Dose: 5 mg Pramipexole Dihydrochloride (Mirapex) 0.5 mg PO HS NUSRAT PRN Reason: Protocol Stop: 09/29/16 20:59 Last Admin: 08/05/16 20:52 Dose: 0.5 mg Rivastigmine (Exelon 4.6 Mg/24 Hr Tdm) 1 patch TD DAILY NUSRAT Stop: 09/29/16 08:59 Last Admin: 08/05/16 12:42 Dose: 1 patch Tramadol HCl (Ultram) 50 mg PO BID NUSRAT Stop: 09/29/16 08:59 Last Admin: 08/05/16 18:11 Dose: Not Given Vitamin D (Vitamin D3) 2,000 iu PO DAILY NUSRAT Stop: 09/29/16 08:59 Last Admin: 08/05/16 11:36 Dose: Not Given Zolpidem Tartrate (Ambien) 5 mg PO HS PRN PRN Reason: Insomnia Stop: 09/29/16 04:13 General: Alert, Cooperative, No acute distress HEENT: Atraumatic, PERRLA, EOMI Neck: Supple, JVD Cardiovascular: Regular rate, Normal S1, Normal S2 Lungs: Clear to auscultation Abdomen: Bowel sounds, Soft Assessment/Plan - Problem List Patient Problems: All Active Problems Agitation (Acute) 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 UTI COMPLICATED TYPE. POOR PO INTAKE. URINARY INCONTENANCE. FALL RISK DEBILITY. - Plan Plan: MONITOR GLUCOSE AND VITALS MONITOR BEHAVIOR GENERAL NURSING CARE. PO CIPRO. ANTI CONSTIPATION MEDS. MEDICAL THERAPY FOR MEDICAL ILLNESS PSYCH MEDS PSYCH FOLLOW UP CARE PLAN REVIEWED FALL PRECAUTIONS.
[2016-08-06] MEDS: Vitamin D3 2,000 IU SGL PO SCH (09:04)
[2016-08-06] MEDS: Lactulose 10 Gm/15 mL 30mL UDC PO SCH (09:05)
[2016-08-06] MEDS: INSULIN HUMAN ISOPHANE (NPH) 100 UNITS/ML SUBQ SCH ×2 (09:05→16:52)
[2016-08-06] MEDS: Multivitamin Tab PO SCH (09:06)
[2016-08-06] MEDS: Rivastigmine 4.6 mg/24 hr Tdm TD SCH (09:09)
[2016-08-07] MEDS: INSULIN ASPART SLIDING SCALE 100 UNITS/ML UNIT SUBQ SCH ×4 (06:38→21:00)
--- NOTE | 2016-08-07 06:45 | Progress Notes ---
Case was discussed with staff of the patient, reviewed records. The patient continues to be confused, demented, and continues to have episodes of agitation, forgetful, unable to make safe plan for self-care redirectable. Takes her medication with food as she is on Depakote Sprinkles. I will be increasing Namenda to 5 mg twice a day and so far no side effects, no sedation, no nausea, no extrapyramidal symptoms, and the urine culture showed Aerococcus. I will defer decision to the medical doctor. Urinalysis shows large, positive for nitrites, and leukocytic esterase, and red cells. CBC showed low neutrophil. The rest within normal range. Chemistry panel showed high blood sugar, high BUN, and high calcium. I will be consulting with Dr. Holland regarding her abnormal lab work. The RPR is nonreactive. T4 within normal range. We will continue with the patient in group therapy, milieu therapy, and adjust the medications as needed. JOB# [id number]
[2016-08-07] MEDS: Vitamin D3 2,000 IU SGL PO SCH (10:23)
[2016-08-07] MEDS: INSULIN HUMAN ISOPHANE (NPH) 100 UNITS/ML SUBQ SCH ×2 (10:24→17:34)
[2016-08-07] MEDS: Multivitamin Tab PO SCH (10:25)
[2016-08-07] MEDS: Rivastigmine 4.6 mg/24 hr Tdm TD SCH (10:25)
[2016-08-07] MEDS: Lactulose 10 Gm/15 mL 30mL UDC PO SCH ×2 (10:25→18:18)
--- NOTE | 2016-08-07 22:17 | Progress Notes ---
Case was discussed with staff of the patient. The staff reported that the patient has been now consistently refusing to eat and refusing to take her medication though they mixed it with the food. She is on Depakote and Aricept and Namenda. I tried to talk to her about side effects. The patient basically had no response whatsoever. She keeps her eyes closed. She would not respond by anything. Though I did increase her Namenda, but she is not taking any of the medications, so probably she has ____, so I will be initiating a 5150 and a 5250 and give her chance to take medication. If not, then I will be ____ her and I talked to her in the presence of staff and regarding side effects, I asked them to give her sheets about side effects of her medication. We will continue to work with the patient in group therapy, milieu therapy and adjust medication ____. JOB# [id number]
[2016-08-08] MEDS: INSULIN ASPART SLIDING SCALE 100 UNITS/ML UNIT SUBQ SCH ×4 (06:38→20:10)
[2016-08-08] MEDS: Rivastigmine 4.6 mg/24 hr Tdm TD SCH (08:05)
[2016-08-08] MEDS: Vitamin D3 2,000 IU SGL PO SCH (08:09)
[2016-08-08] MEDS: Lactulose 10 Gm/15 mL 30mL UDC PO SCH (08:09)
[2016-08-08] MEDS: Multivitamin Tab PO SCH (08:10)
[2016-08-08] MEDS: INSULIN HUMAN ISOPHANE (NPH) 100 UNITS/ML SUBQ SCH ×2 (09:46→17:20)
--- NOTE | 2016-08-09 01:47 | Progress Notes ---
Dr. aY covering for Dr. Caruso. SUBJECTIVE: Chart reviewed and the patient interviewed. Also discussed the patient's condition with the staff and reviewed records and labs. The patient is still extremely angry and is still extremely irritable with severe mood swings and anger. The patient also is still suspicious and is still paranoid. The patient also still seems to be preoccupied and she wants to be left alone and does not want to talk to anyone. The patient also is restless and is still in angry and in irritable mood. She also is taking her medications intermittently. ASSESSMENT: The patient is still psychotic and can be dangerous to others. TREATMENT PLAN: Discussed with the patient the importance of taking her medications. The patient also still needs close monitoring of her behavior. Also, we will continue to work on her impulsivity and her compliance with taking her medications and we will continue to follow up. [facility]# [id number]
[2016-08-09] MEDS: INSULIN ASPART SLIDING SCALE 100 UNITS/ML UNIT SUBQ SCH ×4 (06:38→21:01)
[2016-08-09] MEDS: Vitamin D3 2,000 IU SGL PO SCH (11:13)
[2016-08-09] MEDS: Lactulose 10 Gm/15 mL 30mL UDC PO SCH (11:15)
[2016-08-09] MEDS: INSULIN HUMAN ISOPHANE (NPH) 100 UNITS/ML SUBQ SCH ×2 (11:15→17:22)
[2016-08-09] MEDS: Multivitamin Tab PO SCH (11:16)
[2016-08-09] MEDS: Rivastigmine 4.6 mg/24 hr Tdm TD SCH (11:18)
--- NOTE | 2016-08-10 00:50 | Progress Notes ---
SUBJECTIVE: Chart reviewed and the patient interviewed. Also discussed the patient's condition with the staff and reviewed records and labs. The patient is still selective in taking her medications and the patient refused to take her medications last night. She is still confused and she still seems to be preoccupied and actively responding to a stimuli. The patient also is still refusing to answer most of the questions and refusing to talk. She also is still easily agitated and gets angry . Also during interview, the patient is disheveled and she still seems to be preoccupied. ASSESSMENT: The patient is still psychotic and is noncompliant with medications. TREATMENT PLAN: Continue monitoring her behavior and her condition closely. Also, we will encourage the patient to take her medications and working on her noncompliance and we will continue to follow up. JOB# [id number]
[2016-08-10] MEDS: INSULIN ASPART SLIDING SCALE 100 UNITS/ML UNIT SUBQ SCH ×4 (06:49→21:49)
[2016-08-10] MEDS: Lactulose 10 Gm/15 mL 30mL UDC PO SCH (09:29)
[2016-08-10] MEDS: Vitamin D3 2,000 IU SGL PO SCH (10:11)
[2016-08-10] MEDS: Rivastigmine 4.6 mg/24 hr Tdm TD SCH (10:12)
[2016-08-10] MEDS: INSULIN HUMAN ISOPHANE (NPH) 100 UNITS/ML SUBQ SCH ×2 (10:12→17:55)
[2016-08-10] MEDS: Multivitamin Tab PO SCH (10:12)
--- NOTE | 2016-08-11 03:23 | Progress Notes ---
Case was discussed with staff of the patient, reviewed records. Actually, the patient did take her medication yesterday and today I was planning to ____ her, but now that she took her medication yesterday and today 2 days in a row and her diet has been changed because of her poor intake and so far she is compliant with the medication with no side effects, I did increase her Namenda dose to 5 mg twice a day a few days ago, and she is already on Remeron 50 mg at bedtime and Exelon patch, which usually she will get regardless because it is a patch and she does not usually refuse it and we will continue to work with the patient in group therapy, milieu therapy, and adjust the medication as needed. So, I will the patient if she starts refusing again. I did talk to her with the staff on Wednesday about the medication and explained side effects. Though, she would not participate in a meaningful conversation, I was there with a electronic scale tester and the medication nurse. We will continue to work with the patient in group therapy, milieu therapy, and adjust the medication as needed. JOB# [id number]
[2016-08-11] MEDS: INSULIN ASPART SLIDING SCALE 100 UNITS/ML UNIT SUBQ SCH ×4 (06:35→21:01)
[2016-08-11] MEDS: Vitamin D3 2,000 IU SGL PO SCH (09:18)
[2016-08-11] MEDS: Multivitamin Tab PO SCH (09:19)
[2016-08-11] MEDS: Rivastigmine 4.6 mg/24 hr Tdm TD SCH (09:19)
[2016-08-11] MEDS: Lactulose 10 Gm/15 mL 30mL UDC PO SCH (09:19)
[2016-08-11] MEDS: INSULIN HUMAN ISOPHANE (NPH) 100 UNITS/ML SUBQ SCH ×2 (09:19→17:16)
[2016-08-11] MEDS ORDERED: Haloperidol Lactate 5 mg/mL 1mL Vial IM ONE (12:06)
--- NOTE | 2016-08-12 04:40 | Progress Notes ---
Case was discussed with staff of the patient. Today the patient wakes up believing that her daughter is dying. She was paranoid. She refused to take medication. The staff managed to give her medication in the last 2 days; however, now she is refusing again. I tried to talk to her again about taking her medications and their side effects and what medication she is willing to take; however, I did not get any response from her. The patient had to get in emergency medication today because of her paranoia and psychosis and so far I will be initiating Haldol on her. She is already on Depakote and with no side effects and we will continue to work. I will be initiating also ____ on her. We will continue to work with the patient in group therapy, milieu therapy and adjust the medication as needed. JOB# [id number]
[2016-08-12] MEDS: INSULIN ASPART SLIDING SCALE 100 UNITS/ML UNIT SUBQ SCH ×4 (06:42→21:11)
[2016-08-12] MEDS: Vitamin D3 2,000 IU SGL PO SCH (09:10)
[2016-08-12] MEDS: Lactulose 10 Gm/15 mL 30mL UDC PO SCH (09:25)
[2016-08-12] MEDS: INSULIN HUMAN ISOPHANE (NPH) 100 UNITS/ML SUBQ SCH ×2 (09:25→17:26)
[2016-08-12] MEDS: Rivastigmine 4.6 mg/24 hr Tdm TD SCH (09:25)
[2016-08-12] MEDS: Multivitamin Tab PO SCH (09:25)
[2016-08-13] MEDS: INSULIN ASPART SLIDING SCALE 100 UNITS/ML UNIT SUBQ SCH ×4 (06:57→21:29)
--- NOTE | 2016-08-13 09:52 | Progress Notes ---
Case was discussed with staff of the patient, reviewed records. The patient did take her medication yesterday; however, she is still noncommunicative. I did pursue ____ she took her medications for 2 days and she stopped and then she was not taking medication before that and I had to put her on a 5150, then a 5250 to pursue the hold and now I am not sure that she will continue to take her medications. So, I will continue to pursue ____ because the patient is unable to talk. She is still getting paranoid. Continues to isolate herself, sometimes not eating, very poor insight. Unable to make safe plan for self-care or participate in a meaningful conversation. She would ____ answer any question about anything, basically noncommunicative, though sometimes she talked and so far she took the medication with no side effects, no sedation and no nausea. I did initiate Haldol because of her paranoia, believing her daughter was dying. We will continue to work with the patient in group therapy, milieu therapy and adjust the medication as needed. JOB# [id number]
[2016-08-13] MEDS: Vitamin D3 2,000 IU SGL PO SCH (13:10)
[2016-08-13] MEDS: INSULIN HUMAN ISOPHANE (NPH) 100 UNITS/ML SUBQ SCH ×2 (13:10→17:39)
[2016-08-13] MEDS: Lactulose 10 Gm/15 mL 30mL UDC PO SCH (13:10)
[2016-08-13] MEDS: Multivitamin Tab PO SCH (13:11)
[2016-08-13] MEDS: Rivastigmine 4.6 mg/24 hr Tdm TD SCH (13:11)
--- NOTE | 2016-08-14 06:11 | Progress Notes ---
Case discussed with staff of the patient. Apparently, the list was not faxed to the court, so we do not have a scheduled, I tried to talk to the patient again that she refused her medication today and yesterday and she would not respond to me in anyway possible, she kept quiet. The staff reports she would not talk to them either. I tried again to tell her what I told her before about the medication, the side effect, but she would not give me any answer or respond to any of my questions. She is still needing redirection, unpredictable, impulsive, at times paranoid, believing her daughter is dying, and we will continue to work with the patient in group therapy, milieu therapy, adjust medication as needed. JOB# [id number]
[2016-08-14] MEDS: INSULIN ASPART SLIDING SCALE 100 UNITS/ML UNIT SUBQ SCH ×4 (06:51→20:26)
--- NOTE | 2016-08-14 08:35 | General Progress Note ---
Subjective - Review of Systems Subjective: PATIENT IS SEEN AND EXAMINED. CHART REVIEWED. NO NEW EVENTS. Objective - Results Result Diagrams: 08/01/16 18:25 08/01/16 18:25 Recent Labs: Laboratory Last Values WBC 9.7 Th/cmm (4.8-10.8) 08/01/16 18:25 RBC 4.41 Mil/cmm (3.80-5.20) 08/01/16 18: Hgb 13.0 gm/dL (11.7-16.1) 08/01/16 18: Hct 38.7 % (35.0-45.0) 08/01/16 18: MCV 87.6 fl (81-100) 08/01/16 18: MCH 29.5 pg (27.0-31.0) 08/01/16 18: MCHC Differential 33.7 pg (28.0-36.0) 08/01/16 18: RDW 14.0 % (11.5-20.0) 08/01/16 18: Plt Count 271 Th/cmm (150-400) 08/01/16 18:25 MPV 8.8 fl 08/01/16 18: Neutrophils % 59.1 % (40.0-80.0) 07/30/16 22:50 Band Neutrophils % 2 % (0-10) 08/01/16 18: Lymphocytes % 32.9 % (20.0-50.0) 07/30/16 22:50 Monocytes % 7.4 % (2.0-10.0) 07/30/16 22:50 Eosinophils % 0.3 % (0.0-5.0) 07/30/16 22:50 Basophils % 0.3 % (0.0-2.0) 07/30/16 22:50 Neutrophils (Manual) 38 % (40-80) L 08/01/16 18: Lymphocytes 48 % (20-50) 08/01/16 18: Monocytes 4 % (2-10) 08/01/16 18:25 Eosinophils 3 % (0-5) 08/01/16 07:14 Basophils 1 % (0-3) 08/01/16 18: Atypical Lymphocytes 7 % 08/01/16 18: Platelet Estimate ADEQUATE (NORMAL) 08/01/16 18:25 Platelet Morphology NORMAL (NORMAL) 08/01/16 18:25 RBC Morph Micro Appear NORMAL (NORMAL) 08/01/16 18:25 Sodium 138 mEq/L (136-145) 08/01/16 18:25 Potassium 4.0 mEq/L (3.5-5.1) 08/01/16 18:25 Chloride 107 mEq/L (98-107) 08/01/16 18:25 Carbon Dioxide 24.1 mEq/L (21.0-31.0) 08/01/16 18:25 Anion Gap 10.9 (7.0-16.0) 08/01/16 18:25 BUN 31 mg/dL (7-25) H 08/01/16 18:25 Creatinine 0.8 mg/dL (0.6-1.2) 08/01/16 18:25 Est GFR ( Amer) TNP 08/01/16 18:25 Est GFR (Non-Af Amer) TNP 08/01/16 18:25 BUN/Creatinine Ratio 38.8 08/01/16 18:25 Glucose 115 mg/dL (70-105) H 08/01/16 18:25 POC Glucose 100 MG/DL (70 - 105) 08/11/16 19:58 Calcium 10.6 mg/dL (8.6-10.3) H 08/01/16 18:25 Total Bilirubin 0.6 mg/dL (0.3-1.0) 08/01/16 18:25 AST 19 U/L (13-39) 08/01/16 18:25 ALT 16 U/L (7-52) 08/01/16 18:25 Alkaline Phosphatase 73 U/L (34-104) 08/01/16 18:25 Total Protein 7.7 gm/dL (6.0-8.3) 08/01/16 18:25 Albumin 4.2 gm/dL (3.7-5.3) 08/01/16 18:25 Globulin 3.5 gm/dL 08/01/16 18:25 Albumin/Globulin Ratio 1.2 (1.0-1.8) 08/01/16 18:25 Free T4 1.22 ng/dL (0.82-1.77) 07/31/16 12:46 Thyroxine (T4) 10.22 ug/dl (6.09-12.23) 07/31/16 09:35 TSH 7.21 uIU/ml (0.34-5.60) H 07/30/16 22:50 Urine Source CATH 08/01/16 18:15 Urine Color YELLOW 08/01/16 18:15 Urine Clarity CLOUDY (CLEAR) H 08/01/16 18:15 Urine pH 8.5 08/01/16 18:15 Ur Specific [place] 1.025 (1.005-1.030) 08/01/16 18:15 Urine Protein >300 mg/dL (NEGATIVE) H 08/01/16 18:15 Urine Glucose (UA) NEGATIVE mg/dL (NEGATIVE) 08/01/16 18:15 Urine Ketones 40 mg/dL (NEGATIVE) H 08/01/16 18:15 Urine Blood LARGE (NEGATIVE) H 08/01/16 18:15 Urine Nitrate POSITIVE (NEGATIVE) H 08/01/16 18:15 Urine Bilirubin NEGATIVE (NEGATIVE) 08/01/16 18:15 Urine Urobilinogen 0.2 E.U./dL (0.2 - 1.0) 08/01/16 18:15 Ur Leukocyte Esterase LARGE (NEGATIVE) H 08/01/16 18:15 Urine RBC 10-25 /hpf (0-5) H 08/01/16 18:15 Urine WBC >100 /hpf (0-5) H 08/01/16 18:15 Ur Epithelial Cells FEW /lpf (FEW) 08/01/16 18:15 Urine Bacteria MANY /hpf (NONE SEEN) 08/01/16 18:15 RPR NONREACTIVE (NONREACTIVE) 07/30/16 22:50 - Physical Exam Vitals and I&O: Vital Signs Temp 98.0 F 08/13/16 14:00 Pulse 74 08/13/16 14:00 Resp 20 08/13/16 14:00 BP 115/61 08/13/16 14:00 Pulse Ox 97 08/13/16 14:00 Intake & Output 08/13/16 08/14/16 08/14/16 18:59 06:59 18:59 Intake Total 1000 Balance 1000 Intake: Oral 1000 Other: # Voids 3 # Bowel Movements 1 Active Medications: Current Medications Acetaminophen (Tylenol) 650 mg PO Q4HR PRN PRN Reason: Pain (Mild) Stop: 09/29/16 03:10 Bisacodyl (Dulcolax 10 Mg Supp) 10 mg RC DAILY PRN PRN Reason: Constipation Stop: 09/29/16 03:10 Last Admin: 08/02/16 12:54 Dose: 10 mg Carbidopa/Levodopa (Sinemet 25mg-100 Mg) 1 tab PO BID [facility] Stop: 09/29/16 08:59 Last Admin: 08/13/16 17:39 Dose: Not Given Divalproex Sodium (Depakote Sprinkle) 250 mg PO BID NUSRAT PRN Reason: Protocol Stop: 09/29/16 08:59 Last Admin: 08/13/16 17:39 Dose: Not Given Docusate Sodium (Colace) 200 mg PO BID [facility] Stop: 09/29/16 08:59 Last Admin: 08/13/16 17:39 Dose: Not Given Famotidine (Pepcid) 20 mg PO BID [facility] Stop: 09/29/16 08:59 Last Admin: 08/13/16 17:39 Dose: Not Given Haloperidol (Haldol) 1 mg PO BID NUSRAT PRN Reason: Protocol Stop: 10/10/16 16:59 Last Admin: 08/13/16 17:39 Dose: Not Given Insulin Aspart (Novolog Insulin Sliding Scale) 0 units SUBQ ACHS NUSRAT PRN Reason: Protocol Stop: 09/29/16 07:29 Last Admin: 08/14/16 06:51 Dose: Not Given Insulin Human NPH (Novolin N) 15 units SUBQ BID NUS[facility]AT PRN Reason: Protocol Stop: 09/29/16 08:59 Last Admin: 08/13/16 17:39 Dose: Not Given Lactulose (Cephulac) 30 gm PO DAILY N[facility] Stop: 10/02/16 08:59 Last Admin: 08/13/16 13:10 Dose: Not Given Lorazepam (Ativan) 0.5 mg PO Q6HR PRN; Protocol PRN Reason: Anxiety Stop: 10/03/16 12:34 Magnesium Hydroxide (Milk Of Magnesia) 30 ml PO HS PRN PRN Reason: Constipation Stop: 09/29/16 03:10 Last Admin: 08/09/16 19:39 Dose: 30 ml Megestrol Acetate (Megace) 400 mg PO DAILY NUSRAT PRN Reason: Protocol Stop: 10/02/16 08:59 Last Admin: 08/13/16 13:11 Dose: Not Given Memantine (Namenda) 5 mg PO BID N[facility] Stop: 10/05/16 16:59 Last Admin: 08/13/16 17:40 Dose: Not Given Mineral Oil (Fleet Mineral Oil) 135 ml RC Q48HR PRN PRN Reason: Constipation Stop: 09/29/16 03:10 Mirtazapine (Remeron) 15 mg PO HS NUSRAT PRN Reason: Protocol Stop: 09/29/16 20:59 Last Admin: 08/13/16 21:31 Dose: Not Given Multivitamins/Vitamin C (Theragran) 1 tab PO DAILY [facility] Stop: 09/29/16 08:59 Last Admin: 08/13/16 13:11 Dose: Not Given Oxybutynin Chloride (Ditropan) 5 mg PO HS N[facility] Stop: 09/29/16 20:59 Last Admin: 08/13/16 21:31 Dose: Not Given Pramipexole Dihydrochloride (Mirapex) 0.5 mg PO HS NUSRAT PRN Reason: Protocol Stop: 09/29/16 20:59 Last Admin: 08/13/16 21:31 Dose: Not Given Rivastigmine (Exelon 4.6 Mg/24 Hr Tdm) 1 patch TD DAILY NUSRAT Stop: 09/29/16 08:59 Last Admin: 08/13/16 13:11 Dose: Not Given Tramadol HCl (Ultram) 50 mg PO BID [facility] Stop: 09/29/16 08:59 Last Admin: 08/13/16 17:40 Dose: Not Given Vitamin D (Vitamin D3) 2,000 iu PO DAILY [facility] Stop: 09/29/16 08:59 Last Admin: 08/13/16 13:10 Dose: Not Given Zolpidem Tartrate (Ambien) 5 mg PO HS PRN PRN Reason: Insomnia Stop: 09/29/16 04:13 General: Alert, Cooperative HEENT: Atraumatic, PERRLA Neck: Supple, JVD Cardiovascular: Regular rate, Normal S1, Normal S2 Lungs: Clear to auscultation Abdomen: Bowel sounds, Soft Psych/Mental Status: Other (Labile mood.) Assessment/Plan - Problem List Patient Problems: All Active Problems Agitation (Acute) 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 UTI COMPLICATED TYPE. POOR PO INTAKE. URINARY INCONTENANCE. FALL RISK DEBILITY. - Plan Plan: MONITOR GLUCOSE AND VITALS MONITOR BEHAVIOR GENERAL NURSING CARE. ANTI CONSTIPATION MEDS. MEDICAL THERAPY FOR MEDICAL ILLNESS PSYCH MEDS PSYCH FOLLOW UP CARE PLAN REVIEWED FALL PRECAUTIONS.
[2016-08-14] MEDS: Rivastigmine 4.6 mg/24 hr Tdm TD SCH (10:02)
[2016-08-14] MEDS: Multivitamin Tab PO SCH (10:08)
[2016-08-14] MEDS: Lactulose 10 Gm/15 mL 30mL UDC PO SCH (10:09)
[2016-08-14] MEDS: Vitamin D3 2,000 IU SGL PO SCH (10:09)
[2016-08-14] MEDS: INSULIN HUMAN ISOPHANE (NPH) 100 UNITS/ML SUBQ SCH ×2 (12:10→17:14)
[2016-08-15] MEDS: INSULIN ASPART SLIDING SCALE 100 UNITS/ML UNIT SUBQ SCH ×4 (06:39→21:14)
--- NOTE | 2016-08-15 09:14 | Progress Notes ---
Case discussed with staff of the patient, reviewed records. The patient so far is more alert. She was able to smile on my face today and they reported that she took her medication yesterday and today and I asked the staff to make sure tell me if she took Haldol orally and she did, so because of her episodes of not taking the medication at times, we will try to give her Haldol Decanoate to facilitate her progress and eating as she has not been eating very well, ____ concerned. She seems to be showing progress and ____ initiating Haldol Decanoate on the patient 25 mg to be given today and every 4 weeks. Hopefully, that would help her feel better sooner and since she is agreeable to take her medications and will continue to work the patient in group therapy, milieu therapy, adjust the medication as needed. JOB# [id number]
[2016-08-15] MEDS: Vitamin D3 2,000 IU SGL PO SCH (10:40)
[2016-08-15] MEDS: Lactulose 10 Gm/15 mL 30mL UDC PO SCH (10:40)
[2016-08-15] MEDS: INSULIN HUMAN ISOPHANE (NPH) 100 UNITS/ML SUBQ SCH ×2 (10:40→17:58)
[2016-08-15] MEDS: Multivitamin Tab PO SCH (10:41)
[2016-08-15] MEDS: Rivastigmine 4.6 mg/24 hr Tdm TD SCH (10:44)
--- NOTE | 2016-08-16 05:45 | Progress Notes ---
Case was discussed with staff of the patient, reviewed records. The patient is much better. She is alert. She is able to communicate. She is smiling. She is in good mood. She took the Haldol Decanoate and the oral Haldol. She has been compliant with the medication with no side effects. We may have to cancel ____; however, we are still 3 days away. Hopefully, she will continue to take the medications and so far, no side effect from the medication, no sedation, no nausea, no extrapyramidal symptoms. We will continue to work with the patient in group therapy, milieu therapy, adjust medication as needed. JOB# [id number]
[2016-08-16] MEDS: INSULIN ASPART SLIDING SCALE 100 UNITS/ML UNIT SUBQ SCH ×4 (06:48→21:00)
[2016-08-16] MEDS: Lactulose 10 Gm/15 mL 30mL UDC PO SCH (09:21)
[2016-08-16] MEDS: Multivitamin Tab PO SCH (09:22)
[2016-08-16] MEDS: Rivastigmine 4.6 mg/24 hr Tdm TD SCH (09:22)
[2016-08-16] MEDS: Vitamin D3 2,000 IU SGL PO SCH (09:23)
[2016-08-16] MEDS: INSULIN HUMAN ISOPHANE (NPH) 100 UNITS/ML SUBQ SCH ×2 (09:31→16:54)
--- NOTE | 2016-08-17 04:49 | Progress Notes ---
Case discussed with staff of the patient, reviewed records. The patient continues to be confused. She did refuse her medication today; however, when I talked to her, she was in good mood. She was able to speak to me, but she was somewhat naked. She needed redirection. She is demented, confused, unable to make safe plan for self-care and I have her on Haldol and she agreed to take the Haldol Decanoate. She did take the Haldol orally for a few days. Today, she refused. We do have ____ in place for 2 days from now hopefully she will improve prior to that. She has no side effects with the medication, no sedation, no nausea, no extrapyramidal symptoms and she is on Exelon patch as well and Depakote Sprinkles and we will continue to work the patient in group therapy, milieu therapy, adjust the medication as needed. I will be checking her Depakote level to see if it is within therapeutic range as well. JOB# [id number]
[2016-08-17] MEDS: INSULIN ASPART SLIDING SCALE 100 UNITS/ML UNIT SUBQ SCH ×4 (07:06→22:43)
[2016-08-17] MEDS: Vitamin D3 2,000 IU SGL PO SCH (09:46)
[2016-08-17] MEDS: Multivitamin Tab PO SCH (09:46)
[2016-08-17] MEDS: Rivastigmine 4.6 mg/24 hr Tdm TD SCH (09:46)
[2016-08-17] MEDS: INSULIN HUMAN ISOPHANE (NPH) 100 UNITS/ML SUBQ SCH ×2 (09:47→17:21)
[2016-08-17] MEDS: Lactulose 10 Gm/15 mL 30mL UDC PO SCH (09:47)
--- NOTE | 2016-08-18 02:03 | Progress Notes ---
Case was discussed with staff of the patient, reviewed records. The patient did take her medications last night and this morning. The patient so far is not acting out. She is eating better. She is sleeping well. Actually, I am not sure ____ need ____ she got the Haldol decanoate injection. She is starting to take her medication more on the regular basis and if she continues to do well, I do have plans to discharge her tomorrow because she is going to a SNF facility and she is on Haldol Decanoate ____ can get better everyday since she has been taking it and no side effects with the medication, no sedation, no nausea, and no extrapyramidal symptoms. We will continue outpatient group therapy, milieu therapy, and adjust the medication as needed. JOB# [id number]
[2016-08-18] MEDS: INSULIN ASPART SLIDING SCALE 100 UNITS/ML UNIT SUBQ SCH ×2 (06:41→12:02)
[2016-08-18] MEDS: Rivastigmine 4.6 mg/24 hr Tdm TD SCH (09:45)
[2016-08-18] MEDS: Lactulose 10 Gm/15 mL 30mL UDC PO SCH (09:46)
[2016-08-18] MEDS: Vitamin D3 2,000 IU SGL PO SCH (09:47)
[2016-08-18] MEDS: Multivitamin Tab PO SCH (09:47)
[2016-08-18] MEDS: INSULIN HUMAN ISOPHANE (NPH) 100 UNITS/ML SUBQ SCH (10:23)
--- NOTE | 2016-08-18 21:24 | Discharge Summary ---
IDENTIFYING INFORMATION: This is an 80-year-old female. CHIEF COMPLAINT: The patient was sent from [facility] because of agitated behavior. She was aggressive towards peers, not responding to redirection, unable to participate in meaningful conversation or make safe plan for self-care. She is demented and confused. She was a very poor historian, though she was alert. 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 She has prior hospitalization here for similar reasons. The patient has been on Remeron, Depakote, and Mirapex. COURSE IN THE HOSPITAL: The patient was continued with her medication. The patient as described above, she was continued with the Mirapex and Depakote 250 mg twice a day and also Pepcid. The patient also was continued with insulin and Ativan as needed. I initiated her on Namenda and increased the dose to 5 mg twice a day, and Remeron was continued ____ at bedtime. She was also on oxybutynin, Mirapex, Sinemet, Exelon patch daily, and tramadol for pain. The patient was refusing medication, so she was at times irritable, refusing to eat, so I initiated Haldol and at beginning, she was refusing it and I initiated the , however, before the was going to happen, the patient started eating and taking her medication willingly and she got the Haldol Decanoate injection 25 mg on 08/14/2016, four days prior to discharge and she was on Haldol 1 mg twice a day ____ the patient improved. She was doing much better. She was able to smile. She was no longer acting in an aggressive manner or hitting people. We felt the patient is ready to go to a lesser level of care as she is going to a nursing facility and we feel this is the best she can do. FINAL DIAGNOSES: AXIS I: Dementia with behavioral disturbances and depression. MEDICAL DIAGNOSES: Deferred to the medical doctor. The patient will be going back to [facility]. She will follow up with the psychiatrist and then primary care physician. EXPECTED OUTCOME: Stable if the patient complies with the above. JOB# [id number]
== END 2016-08-18 15:30 | DRG 57 ==
LOC: ER 21:54 → GERO 07-31 00:20
PROVIDERS: ADMIT Psychiatry & Neurology Psychiatry; ATTEND Psychiatry & Neurology Psychiatry
DX: G30.9 Alzheimer's disease, unspecified (principal); F02.81 Dementia in other diseases classified elsewhere, unspecified severity, with behavioral disturbance; G20 Parkinson's disease; N39.0 Urinary tract infection, site not specified; E11.9 Type 2 diabetes mellitus without complications; K21.9 Gastro-esophageal reflux disease without esophagitis; M19.90 Unspecified osteoarthritis, unspecified site; R13.10 Dysphagia, unspecified; M81.0 Age-related osteoporosis without current pathological fracture; F32.9 Major depressive disorder, single episode, unspecified; K59.00 Constipation, unspecified; F29 Unspecified psychosis not due to a substance or known physiological condition; R32 Unspecified urinary incontinence; G89.29 Other chronic pain; Z79.4 Long term (current) use of insulin; Z88.7 Allergy status to serum and vaccine; Z91.81 History of falling
CPT/HCPCS: 36415-UA; 71010-TC; 80053-TC; 81001-TC; 82948-90; 84436-TC; 84439-90; 84443-TC; 85007-TC; 85025-TC; 85027-TC; 86592-TC; 87086-90; 93005; 97530; J1630; J1631; J1815; J2060; X3904; Z7610

== ENCOUNTER 2018-05-25 19:47 | Inpatient (IN) | payer MEDICARE, OTHER ==
--- NOTE | 2018-05-25 20:19 | ED Physician Chart ---
ED Chief Complaint/HPI - Patient Information Date Seen:: 05/25/18 Time Seen:: 20:00 Chief Complaint:: Agitation History of Present Illness:: onset x 3 days of agitation and aggressive behavior; no report of trauma, SIs, H /As, neck pain, C/P, SOB, Abd. Pain, A/N/V/D/C, fever, chills, or urinary s/s Allergies:: Allergies Allergy/AdvReac Type Severity Reaction Status Date / Time pneumococcal vaccine Allergy Verified 07/30/16 22:24 Historian:: Patient, EMS Review:: Nurse's Note Reviewed, Old Chart Reviewed, EMS run form Reviewed ED Review of Systems - Review of Systems General/Constitutional: No fever, No chills, No weight loss, Weakness, No diaphoresis, No edema, No loss of appetite Skin: No skin lesions, No rash, No bruising Head: No headache, No light-headedness Eyes: No loss of vision, No pain, No diplopia ENT: No earache, No nasal drainage, No sore throat, No tinnitus Neck: No neck pain, No swelling, No thyromegaly, No stiffness, No mass noted Cardio Vascular: No chest pain, No palpitations, No PND, No orthopnea, No edema Pulmonary: No SOB, No cough, No sputum, No wheezing GI: No nausea, No vomiting, No diarrhea, No pain, No melena, No hematochezia, No constipation, No hematemesis G/U: No dysuria, No frequency, No hematuria, No nacturia 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: No vaginal discharge, No abnormal vaginal bleed, No contraction Musculoskeletal: No bone or joint pain, No back pain, No muscle pain Endocrine: No polyuria, No polydipsia Psychiatric: Prior psych history, Depression, Anxiety, No suicidal ideation, No homicidal ideation, No auditory hallucination, No visual hallucination Hematopoietic: No bruising, No lymphadenopathy Allergic/Immuno: No urticaria, No angioedema Neurological: No syncope, No focal symptoms, Weakness, No paresthesia, No headache, No seizure, No dizziness, No confusion, No vertigo ED Past Medical History - Past Medical History Obtainable: Yes Past Medical History: HTN, DM, Dyslipidemia, PUD/GERD, Arthritis, Dementia, Other (Parkinson's Disease) Family History: Diabetes Melitus, HTN Social History: Non Smoker, No Alcohol, No Drug Use, Single, Care Facility Surgical History: None Psychiatricy History: Bipolar, Dementia Medication: Reviewed Family Medical History - Family Member Mother History Unknown: Yes ED Physical Exam - Physical Examination General/Constitutional: Awake, Well-developed, well-nourished, Alert, No distress, GCS 15, Non-toxic appearing, Ambulatory Head: Atraumatic Eyes: Lids, conjuctiva normal, PERRL, EOMI Skin: Nl inspection, No rash, No skin lesions, No ecchymosis, Well hydrated, No lymphadenopathy ENMT: External ears, nose nl, TM canals nl, Nasal exam nl, Lips, teeth, gums nl , Oropharynx nl, Tonsils nl Neck: Nontender, Full ROM w/o pain, No JVD, No nuchal rigidity, No bruit, No mass, No stridor Respiratory: Nl effort/Exclusion, Clear to Auscultation, No Wheeze/Rhonchi/Rales Cardio Vascular: RRR, No murmur, gallop, rubs, NL S1 S2, Carotid/Femoral/Distal pulses equal bilaterally GI: No tenderness/rebounding/guarding, No organomegaly, No hernia, Normal BS's, Nondistended, No mass/bruits, No McBurney tenderness Other GI comments:: no pulsatile masses : No CVA tenderness Extremities: No tenderness or effusion, Full ROM, normal strength in all extremities, No edema, Normal digits & nails Neuro/Psych: Alert/oriented, DTR's symmetric, Normal sensory exam, Normal motor strength, Judgement/insight normal, Mood normal, Normal gait, No focal deficits Other Neuro/Psych comments:: + Psychomotor Agitation; no SIs; Mood/Affect: Labile Misc: Normal back, No paraspinal tenderness ED Labs/Radiology/EKG Results - Lab Results Comments:: Reviewed - EKG Interpretations Comments:: refused by pt ED Septic Shock - . Is Septic Shock (SBP<90, OR Lactate>4 mmol\L) present?: No ED Reassessment (Disposition) - Reassessment Reassessment Condition:: Improved - Diagnosis Diagnosis:: Agitation; Medical Clearance; Dementia; Psychosis; Bipolar Disorder - Aftercare/Follow up Instructions Aftercare/Follow-Up Instructions:: Counseled pt regarding lab results/diagnosis & need follow up, Counseled pt & family regarding lab results/diagnosis & need follow up - Patient Disposition Discharge/Transfer:: Acute Care w/in this hosp Admitted to:: [facility] Condition at Disposition:: Stable, Improved
[2018-05-25 20:49] LABS: % BASOPHILS 0.5 % (0.0-2.0); % EOSINOPHILS 1.8 % (0.0-5.0); % LYMPHOCYTES 46.7 % (20.0-50.0); BASOPHILE ABSOLUTE 0.1 Th/cumm (0-0.2); EOSINOPHILE ABSOLUTE 0.2 Th/cmm (0.1-0.4); HEMATOCRIT 41.9 % (41.0-60); HEMOGLOBIN 13.9 gm/dL (12-16); LYMPHOCYTE ABSOLUTE 5.5 Th/cmm (1.5-3.0); MEAN CELL VOLUME 86.7 fl (81-100); MEAN CORPUSCULAR HEMOGLOBIN 28.7 pg (27.0-31.0); MEAN CORPUSCULAR HGB CONC 33.1 pg (28.0-36.0); MEAN PLATELET VOLUME 9.1 fl; MONOCYTE ABSOLUTE 0.9 Th/cmm (0.3-1.0); PLATELET COUNT 232 Th/cmm (150-400); RED BLOOD COUNT 4.84 Mil/cmm (3.80-5.20); RED CELL DISTRIBUTION WIDTH 14.5 % (11.5-20.0); WHITE BLOOD COUNT 11.7 Th/cmm (4.8-10.8)
[2018-05-25 21:08] LABS: ACETAMINOPHEN < 10.0 ug/mL (10.0-30.0); ALB/GLOB RATIO 1.3 (1.0-1.8); ALBUMIN 4.2 gm/dL (3.7-5.3); ALKALINE PHOSPHATASE 66 U/L (34-104); ANION GAP 15.3 (7.0-16.0); BILIRUBIN,TOTAL 0.5 mg/dL (0.3-1.0); BUN - UREA NITROGEN 29 mg/dL (7-25); CALCIUM SERUM 10.7 mg/dL (8.6-10.3); CARBON DIOXIDE 25.7 mEq/L (21.0-31.0); CHLORIDE 101 mEq/L (98-107); CHOLESTEROL 216 mg/dL (<200); CREATININE - SERUM 0.8 mg/dL (0.6-1.2); GLUCOSE 154 mg/dL (70-105); HDL -HIGH DENSITY LIPOPROTEIN 54 mg/dL (23-92); SALICYLATES (ASPIRIN) < 25.0 mg/L (30.0-100.0); SGOT 40 U/L (13-39); SGPT/ALT 13 U/L (7-52); SODIUM SERUM 138 mEq/L (136-145); TOTAL PROTEIN,SERUM 7.4 gm/dL (6.0-8.3); TRIGLYCERIDES 282 mg/dL (<150)
[2018-05-25 22:46] VITALS: BP 123/60
[2018-05-25] MEDS ORDERED: Magnesium Hydroxide (MOM) 30 mL UDC PO PRN (23:05)
[2018-05-25] MEDS ORDERED: MINERAL OIL ENEMA 135 ML BOTTLE RC PRN (23:11)
[2018-05-26] MEDS: INSULIN ASPART SLIDING SCALE 100 UNITS/ML UNIT SUBQ SCH ×4 (06:44→20:26)
[2018-05-26] MEDS: INSULIN HUMAN ISOPHANE (NPH) 100 UNITS/ML SUBQ SCH ×2 (09:18→16:58)
[2018-05-26] MEDS: Lactulose 10 Gm/15 mL 30mL UDC PO SCH (10:06)
[2018-05-26] MEDS: Vitamin D3 2,000 IU SGL PO SCH (10:07)
[2018-05-26] MEDS: Multivitamin Tab PO SCH (10:08)
[2018-05-26] MEDS: Rivastigmine 4.6 mg/24 hr Tdm TD SCH (10:44)
--- NOTE | 2018-05-26 21:06 | Psychiatric Evaluation ---
DATE OF SERVICE: PSYCHIATRIC INITIAL EVALUATION AND MENTAL STATUS EXAM PATIENT'S AGE: 82. SEX: Female. PHYSICIAN: Dr. Ya. CHIEF COMPLAINT: Agitation and irritable mood. HISTORY OF PRESENT ILLNESS: The patient is an 82-year-old female, who was transferred from [facility] because the patient has been extremely agitated. The patient has been throwing objects at other patients and towards the staff members. She also has not been able to follow any direction. The patient also has been in angry and in irritable mood and has been confused. The patient is still confused and angry and she was not able to give me much information about reasons for her anger. She also is not able to tell me where she lives or what is she doing in the senior living. Also was not able to tell me about any of her family members. She also has been restless and has been having poor insight about her issues and about her problems. PAST PSYCHIATRIC HISTORY: The patient has history of dementia. PAST MEDICAL HISTORY: The patient has a history of hypertension as well as diabetes mellitus, Parkinson's disease, dysphagia, and generalized weakness. SOCIAL HISTORY: The patient lives in [facility]. No known alcohol or drug use. ALLERGIES: No known allergies. MENTAL STATUS EXAMINATION: The patient appears her stated age. Anxious. Flat affect. In a depressed mood. Disheveled. Thought processes are circumstantial with flight of ideas. The patient is angry and is unable to give me any information about reasons for her anger. The patient denied any hallucinations or delusions, but the patient is preoccupied. The patient denies any thoughts of suicide or homicide. The patient is alert, but disoriented to place, person and situation. Impaired immediate and recent memories, but intact remote memories and she remembered her date. Poor insight. Poor judgment. ASSESSMENT: PRIMARY DIAGNOSIS: Unspecified psychosis. SECONDARY DIAGNOSIS: Dementia, moderate to severe, with psychotic features and behavioral disturbances. MEDICAL DIAGNOSES: 1. Diabetes mellitus. 2. Hypertension. 3. Parkinson's disease. 4. Generalized weakness. TREATMENT PLAN: We will monitor the patient's behavior and condition closely. We will work on behavior modification. Also, we will work on adjusting psychotropic medications considering her Parkinson's disease also and any possible deterioration of her Parkinson's condition. ESTIMATED LENGTH OF STAY: 5-7 days. THE PATIENT'S STRENGTHS AND WEAKNESSES: The patient have support from [facility] and she is able to return there. Weaknesses is her poor impulse control. AFTER DISCHARGE PLAN: Outpatient treatment and followup will continue as an outpatient. CRITERIA FOR DISCHARGE: The patient will not be psychotic and has better impulse control and stabilize psychotropic medications. JOB# [id number]
[2018-05-27] MEDS: INSULIN ASPART SLIDING SCALE 100 UNITS/ML UNIT SUBQ SCH ×4 (06:30→20:45)
--- NOTE | 2018-05-27 08:42 | Internal Medicine Prog Note ---
Internal Medicine Subjective - Subjective Patient seen and examined:: chart reviewed Patient is:: confused, other (irittable ) Per staff patient has:: no adverse event Internal Medicine Objective - Results Result Diagrams: 05/25/18 20:40 05/25/18 20:40 Recent Labs: Laboratory Last Values WBC 11.7 Th/cmm (4.8-10.8) H 05/25/18 20:40 RBC 4.84 Mil/cmm (3.80-5.20) 05/25/18 20:40 Hgb 13.9 gm/dL (12-16) 05/25/18 20:40 Hct 41.9 % (41.0-60) 05/25/18 20:40 MCV 86.7 fl (81-100) 05/25/18 20:40 MCH 28.7 pg (27.0-31.0) 05/25/18 20:40 MCHC Differential 33.1 pg (28.0-36.0) 05/25/18 20:40 RDW 14.5 % (11.5-20.0) 05/25/18 20:40 Plt Count 232 Th/cmm (150-400) 05/25/18 20:40 MPV 9.1 fl 05/25/18 20:40 Neutrophils % 43.0 % (40.0-80.0) 05/25/18 20:40 Lymphocytes % 46.7 % (20.0-50.0) 05/25/18 20:40 Monocytes % 8.0 % (2.0-10.0) 05/25/18 20:40 Eosinophils % 1.8 % (0.0-5.0) 05/25/18 20:40 Basophils % 0.5 % (0.0-2.0) 05/25/18 20:40 Sodium 138 mEq/L (136-145) 05/25/18 20:40 Potassium 4.0 mEq/L (3.5-5.1) 05/25/18 20:40 Chloride 101 mEq/L (98-107) 05/25/18 20:40 Carbon Dioxide 25.7 mEq/L (21.0-31.0) 05/25/18 20:40 Anion Gap 15.3 (7.0-16.0) 05/25/18 20:40 BUN 29 mg/dL (7-25) H 05/25/18 20:40 Creatinine 0.8 mg/dL (0.6-1.2) 05/25/18 20:40 Est GFR ( Amer) TNP 05/25/18 20:40 Est GFR (Non-Af Amer) TNP 05/25/18 20:40 BUN/Creatinine Ratio 36.3 05/25/18 20:40 Glucose 154 mg/dL (70-105) H 05/25/18 20:40 POC Glucose 85 MG/DL (70 - 105) 05/27/18 06:19 Calcium 10.7 mg/dL (8.6-10.3) H 05/25/18 20:40 Total Bilirubin 0.5 mg/dL (0.3-1.0) 05/25/18 20:40 AST 40 U/L (13-39) H 05/25/18 20:40 ALT 13 U/L (7-52) 05/25/18 20:40 Alkaline Phosphatase 66 U/L (34-104) 05/25/18 20:40 Troponin I 0.04 ng/mL (0.01-0.05) 05/25/18 20:40 Total Protein 7.4 gm/dL (6.0-8.3) 05/25/18 20:40 Albumin 4.2 gm/dL (3.7-5.3) 05/25/18 20:40 Globulin 3.2 gm/dL 05/25/18 20:40 Albumin/Globulin Ratio 1.3 (1.0-1.8) 05/25/18 20:40 Triglycerides 282 mg/dL (<150) H 05/25/18 20:40 Cholesterol 216 mg/dL (<200) H 05/25/18 20:40 LDL Cholesterol Direct 160 mg/dL (75-193) 05/25/18 20:40 HDL Cholesterol 54 mg/dL (23-92) 05/25/18 20:40 TSH 3.68 uIU/ml (0.34-5.60) 05/25/18 20:40 Salicylates < 25.0 mg/L (30.0-100.0) L 05/25/18 20:40 Acetaminophen < 10.0 ug/mL (10.0-30.0) L 11/21/18 20:40 Ethyl Alcohol < 10 mg/dL (0-10) 05/25/18 20:40 - Physical Exam Vitals and I&O: Vital Signs Temp 97.2 F 05/27/18 06:29 Pulse 69 05/27/18 06:29 Resp 18 05/27/18 06:29 BP 143/80 05/27/18 06:29 Pulse Ox 97 05/27/18 06:29 Intake & Output 05/26/18 05/27/18 05/27/18 18:59 06:59 18:59 Intake Total 700 120 Balance 700 120 Intake: Oral 700 120 Other: # Voids 3 3 # Bowel Movements 0 Active Medications: Current Medications Acetaminophen (Tylenol) 650 mg PO Q4HR PRN PRN Reason: Mild Pain / Temp above 100 Stop: 07/24/18 23:04 Bisacodyl (Dulcolax 10 Mg Supp) 10 mg RC DAILY PRN PRN Reason: Constipation Stop: 07/24/18 23:10 Carbidopa/Levodopa (Sinemet 25mg-100 Mg) 1 tab PO BID [facility] Stop: 07/25/18 08:59 Last Admin: 05/26/18 17:33 Dose: 1 tab Docusate Sodium (Colace) 100 mg PO BID [facility] Stop: 07/25/18 08:59 Last Admin: 05/26/18 17:33 Dose: 100 mg Famotidine (Pepcid) 20 mg PO BID [facility] Stop: 07/25/18 08:59 Last Admin: 05/26/18 17:33 Dose: 20 mg Insulin Aspart (Novolog Insulin Sliding Scale) 0 units SUBQ ACHS [facility]; Protocol Stop: 07/25/18 07:29 Last Admin: 05/27/18 06:30 Dose: Not Given Insulin Human NPH (Novolin N) 15 units SUBQ BID [facility]; Protocol Stop: 07/25/18 08:59 Last Admin: 05/26/18 16:58 Dose: Not Given Lactulose (Cephulac) 30 gm PO DAILY [facility] Stop: 07/25/18 08:59 Last Admin: 05/26/18 10:06 Dose: 30 gm Lorazepam (Ativan) 0.5 mg PO Q4H PRN; Protocol PRN Reason: Anxiety Stop: 07/24/18 23:04 Lorazepam (Ativan) 0.5 mg PO TID [facility]; Protocol Stop: 07/25/18 08:59 Last Admin: 05/26/18 20:18 Dose: 0.5 mg Magnesium Hydroxide (Milk Of Magnesia) 30 ml PO HS PRN PRN Reason: Constipation Memantine (Namenda) 10 mg PO BID [facility] Stop: 07/26/18 08:59 Mineral Oil (Fleet Mineral Oil) 135 ml RC Q48HR PRN PRN Reason: Constipation Stop: 07/24/18 23:10 Mirtazapine (Remeron) 15 mg PO HS NUSRAT; Protocol Stop: 07/25/18 20:59 Last Admin: 05/26/18 20:27 Dose: 15 mg Multivitamins/Vitamin C (Theragran) 1 tab PO DAILY [facility] Stop: 07/25/18 08:59 Last Admin: 05/26/18 10:08 Dose: 1 tab Rivastigmine (Exelon 4.6 Mg/24 Hr Tdm) 1 patch TD DAILY [facility] Stop: 07/25/18 08:59 Last Admin: 05/26/18 10:44 Dose: 1 patch Senna (Senna) 8.6 mg PO DAILY [facility] Stop: 07/25/18 08:59 Last Admin: 05/26/18 10:07 Dose: 8.6 mg Vitamin D (Vitamin D3) 2,000 iu PO DAILY [facility] Stop: 07/25/18 08:59 Last Admin: 05/26/18 10:07 Dose: 2,000 iu Zolpidem Tartrate (Ambien) 5 mg PO HS PRN PRN Reason: Insomnia Stop: 07/24/18 23:04 General: other (confused) HEENT: NC/AT Neck: Supple Lungs: CTAB Cardiovascular: Normal S1, Normal S2 Abdomen: soft, non-tender Extremities: clear, edema Neurological: no change Internal Medicine Assmt/Plan - Assessment Assessment: dm htn parkrinson's generalized weakness - Plan Plan: as per psych will monitor
[2018-05-27] MEDS: INSULIN HUMAN ISOPHANE (NPH) 100 UNITS/ML SUBQ SCH ×2 (08:45→16:58)
[2018-05-27] MEDS: Lactulose 10 Gm/15 mL 30mL UDC PO SCH (09:41)
[2018-05-27] MEDS: Multivitamin Tab PO SCH (09:42)
[2018-05-27] MEDS: Vitamin D3 2,000 IU SGL PO SCH (09:42)
[2018-05-27] MEDS: Rivastigmine 4.6 mg/24 hr Tdm TD SCH (09:45)
--- NOTE | 2018-05-28 01:35 | Progress Notes ---
DATE: 05/27/2018 PSYCHIATRIC PROGRESS NOTE SUBJECTIVE: Chart reviewed and the patient interviewed. Also discussed the patient's condition with the staff and reviewed records and labs. The patient is English speaking. The patient still isolates herself and stays by herself in her room most of the time. The patient also is still argumentative with her roommate. She also is still actively hallucinating and talking to herself. Otherwise, the patient is compliant with taking her medications with no side effect of Remeron or Namenda. ASSESSMENT: The patient is still psychotic. TREATMENT PLAN: We will increase Namenda to 10 mg twice a day and we will continue to monitor behavior and condition closely. JOB# [id number]
[2018-05-28] MEDS: INSULIN ASPART SLIDING SCALE 100 UNITS/ML UNIT SUBQ SCH ×4 (06:46→20:28)
[2018-05-28] MEDS: Lactulose 10 Gm/15 mL 30mL UDC PO SCH (09:17)
[2018-05-28] MEDS: Multivitamin Tab PO SCH (09:18)
[2018-05-28] MEDS: Vitamin D3 2,000 IU SGL PO SCH (09:18)
[2018-05-28] MEDS: INSULIN HUMAN ISOPHANE (NPH) 100 UNITS/ML SUBQ SCH ×2 (09:29→17:02)
[2018-05-28] MEDS: Rivastigmine 4.6 mg/24 hr Tdm TD SCH (10:00)
--- NOTE | 2018-05-28 11:34 | History & Physical ---
ADMIT DATE: 05/26/2018 CHIEF COMPLAINT: Agitation and aggressive behavior. HISTORY OF PRESENT ILLNESS: This is an 82-year-old female who was admitted from a halfway facility to [facility] due to agitation and increase in confusion. REVIEW OF SYSTEMS: GENERAL: This is an 82-year-old female. Denies fever. Denies weakness. HEAD: Denies headache. Denies dizziness. EYES: Denies eye pain. Denies blurring vision. NECK: Denies neck pain. Denies nuchal rigidity. CHEST: Denies chest pain. Denies palpitation. PULMONARY: Denies coughing. Denies shortness of breath. GASTROINTESTINAL: Denies abdominal pain. Denies constipation. Denies diarrhea. MUSCULOSKELETAL: Denies joint pain. Denies muscle pain. SOCIAL HISTORY: The patient lives in a halfway facility prior to hospitalization. FAMILY HISTORY: Unremarkable. PAST SURGICAL HISTORY: Unremarkable. PAST PSYCHIATRIC HISTORY: Includes dementia. PAST MEDICAL HISTORY: Includes Parkinson disease, vitamin D deficiency, gastroesophageal reflux disease, and diabetes mellitus. PHYSICAL EXAMINATION: VITAL SIGNS: Temperature 98.3, heart rate 64, blood pressure 135/59, respiration 18, 97% on room air. HEENT: Head is atraumatic, normocephalic. Eyes: Bilateral conjunctivae are clear. Bilateral pupils are equally round and reactive. NECK: Supple. No JVD. CARDIOVASCULAR: S1 and S2, without murmur. PULMONARY: Clear to auscultation. GASTROINTESTINAL: Soft and nontender without guarding. Positive bowel sounds. MUSCULOSKELETAL: No clubbing. No cyanosis noted. ASSESSMENT: 1. Dementia. 2. Parkinson disease. 3. Osteoarthritis. 4. Diabetes. 5. Gastroesophageal reflux disease. PLAN: We will admit the patient to Inpatient Psychiatric Unit. We will follow up with a psychiatrist to monitor the patient's condition and behavior. We will do medication reconciliation accordingly. Treatment plans were discussed with the patient's nurse. Treatment plans were discussed with Dr. Davis. JOB# [id number]
--- NOTE | 2018-05-28 20:08 | Progress Notes ---
DATE: 05/28/2018 SUBJECTIVE: Chart reviewed and the patient interviewed. Also, discussed the patient's condition with the staff and reviewed records and labs. The patient is still agitated and irritable because of problems with her roommate. The patient also is still argumentative and she is still confused. She also seems to be preoccupied. The patient is rambling in German language and easily agitated when tried to redirect her. The patient continued to take Exelon patch as well as Namenda and Remeron. We will add Risperdal in a dose of 0.5 mg at bedtime and we will continue to follow up her condition and her medications closely. JOB# [id number]
[2018-05-29] MEDS: INSULIN ASPART SLIDING SCALE 100 UNITS/ML UNIT SUBQ SCH ×4 (06:36→21:32)
[2018-05-29] MEDS: Lactulose 10 Gm/15 mL 30mL UDC PO SCH (08:56)
[2018-05-29] MEDS: Vitamin D3 2,000 IU SGL PO SCH (08:56)
[2018-05-29] MEDS: Multivitamin Tab PO SCH (08:56)
[2018-05-29] MEDS: Rivastigmine 4.6 mg/24 hr Tdm TD SCH (09:16)
[2018-05-29] MEDS: INSULIN HUMAN ISOPHANE (NPH) 100 UNITS/ML SUBQ SCH ×2 (09:26→16:54)
--- NOTE | 2018-05-29 11:28 | Internal Medicine Prog Note ---
Internal Medicine Subjective - Subjective Patient seen and examined:: chart reviewed Patient is:: confused, other (irittable ,no signs of pain) Per staff patient has:: no adverse event Internal Medicine Objective - Results Result Diagrams: 05/25/18 20:40 05/25/18 20:40 Recent Labs: Laboratory Last Values WBC 11.7 Th/cmm (4.8-10.8) H 05/25/18 20:40 RBC 4.84 Mil/cmm (3.80-5.20) 05/25/18 20:40 Hgb 13.9 gm/dL (12-16) 05/25/18 20:40 Hct 41.9 % (41.0-60) 05/25/18 20:40 MCV 86.7 fl (81-100) 05/25/18 20:40 MCH 28.7 pg (27.0-31.0) 05/25/18 20:40 MCHC Differential 33.1 pg (28.0-36.0) 05/25/18 20:40 RDW 14.5 % (11.5-20.0) 05/25/18 20:40 Plt Count 232 Th/cmm (150-400) 05/25/18 20:40 MPV 9.1 fl 05/25/18 20:40 Neutrophils % 43.0 % (40.0-80.0) 05/25/18 20:40 Lymphocytes % 46.7 % (20.0-50.0) 05/25/18 20:40 Monocytes % 8.0 % (2.0-10.0) 05/25/18 20:40 Eosinophils % 1.8 % (0.0-5.0) 05/25/18 20:40 Basophils % 0.5 % (0.0-2.0) 05/25/18 20:40 Sodium 138 mEq/L (136-145) 05/25/18 20:40 Potassium 4.0 mEq/L (3.5-5.1) 05/25/18 20:40 Chloride 101 mEq/L (98-107) 05/25/18 20:40 Carbon Dioxide 25.7 mEq/L (21.0-31.0) 05/25/18 20:40 Anion Gap 15.3 (7.0-16.0) 05/25/18 20:40 BUN 29 mg/dL (7-25) H 05/25/18 20:40 Creatinine 0.8 mg/dL (0.6-1.2) 05/25/18 20:40 Est GFR ( Amer) TNP 05/25/18 20:40 Est GFR (Non-Af Amer) TNP 05/25/18 20:40 BUN/Creatinine Ratio 36.3 05/25/18 20:40 Glucose 154 mg/dL (70-105) H 05/25/18 20:40 POC Glucose 153 MG/DL (70 - 105) H 05/29/18 09:09 Calcium 10.7 mg/dL (8.6-10.3) H 05/25/18 20:40 Total Bilirubin 0.5 mg/dL (0.3-1.0) 05/25/18 20:40 AST 40 U/L (13-39) H 05/25/18 20:40 ALT 13 U/L (7-52) 05/25/18 20:40 Alkaline Phosphatase 66 U/L (34-104) 05/25/18 20:40 Troponin I 0.04 ng/mL (0.01-0.05) 05/25/18 20:40 Total Protein 7.4 gm/dL (6.0-8.3) 05/25/18 20:40 Albumin 4.2 gm/dL (3.7-5.3) 05/25/18 20:40 Globulin 3.2 gm/dL 05/25/18 20:40 Albumin/Globulin Ratio 1.3 (1.0-1.8) 05/25/18 20:40 Triglycerides 282 mg/dL (<150) H 05/25/18 20:40 Cholesterol 216 mg/dL (<200) H 05/25/18 20:40 LDL Cholesterol Direct 160 mg/dL (75-193) 05/25/18 20:40 HDL Cholesterol 54 mg/dL (23-92) 05/25/18 20:40 TSH 3.68 uIU/ml (0.34-5.60) 05/25/18 20:40 Salicylates < 25.0 mg/L (30.0-100.0) L 05/25/18 20:40 Acetaminophen < 10.0 ug/mL (10.0-30.0) L 05/25/18 20:40 Ethyl Alcohol < 10 mg/dL (0-10) 05/25/18 20:40 - Physical Exam Vitals and I&O: Vital Signs Temp 97.5 F 05/29/18 06:07 Pulse 66 05/29/18 06:07 Resp 18 05/29/18 06:07 BP 118/74 05/29/18 06:07 Pulse Ox 98 05/29/18 06:07 Intake & Output 05/28/18 05/29/18 05/29/18 18:59 06:59 18:59 Intake Total 240 Output Total 1 Balance 239 Intake: Oral 240 Output: Urine/Stool Mix 1 Other: # Voids 3 1 Active Medications: Current Medications Acetaminophen (Tylenol) 650 mg PO Q4HR PRN PRN Reason: Mild Pain / Temp above 100 Stop: 07/24/18 23:04 Bisacodyl (Dulcolax 10 Mg Supp) 10 mg RC DAILY PRN PRN Reason: Constipation Stop: 07/24/18 23:10 Carbidopa/Levodopa (Sinemet 25mg-100 Mg) 1 tab PO BID [facility] Stop: 07/25/18 08:59 Last Admin: 05/29/18 08:56 Dose: 1 tab Docusate Sodium (Colace) 100 mg PO BID [facility] Stop: 07/25/18 08:59 Last Admin: 05/29/18 08:56 Dose: 100 mg Famotidine (Pepcid) 20 mg PO BID [facility] Stop: 07/25/18 08:59 Last Admin: 05/29/18 08:56 Dose: 20 mg Insulin Aspart (Novolog Insulin Sliding Scale) 0 units SUBQ ACHS [facility]; Protocol Stop: 07/25/18 07:29 Last Admin: 05/29/18 06:36 Dose: Not Given Insulin Human NPH (Novolin N) 15 units SUBQ BID [facility]; Protocol Stop: 07/25/18 08:59 Last Admin: 05/29/18 09:26 Dose: 15 units Lactulose (Cephulac) 30 gm PO DAILY [facility] Stop: 07/25/18 08:59 Last Admin: 05/29/18 08:56 Dose: 30 gm Lorazepam (Ativan) 0.5 mg PO Q4H PRN; Protocol PRN Reason: Anxiety Stop: 07/24/18 23:04 Lorazepam (Ativan) 0.5 mg PO TID [facility]; Protocol Stop: 07/25/18 08:59 Last Admin: 05/29/18 08:56 Dose: 0.5 mg Magnesium Hydroxide (Milk Of Magnesia) 30 ml PO HS PRN PRN Reason: Constipation Memantine (Namenda) 10 mg PO BID [facility] Stop: 07/26/18 08:59 Last Admin: 05/29/18 08:56 Dose: 10 mg Mineral Oil (Fleet Mineral Oil) 135 ml RC Q48HR PRN PRN Reason: Constipation Stop: 07/24/18 23:10 Mirtazapine (Remeron) 15 mg PO HS [facility]; Protocol Stop: 07/25/18 20:59 Last Admin: 05/28/18 20:28 Dose: Not Given Multivitamins/Vitamin C (Theragran) 1 tab PO DAILY [facility] Stop: 07/25/18 08:59 Last Admin: 05/29/18 08:56 Dose: 1 tab Risperidone (Risperdal) 0.5 mg PO HS [facility]; Protocol Stop: 07/27/18 20:59 Last Admin: 05/28/18 20:28 Dose: Not Given Rivastigmine (Exelon 4.6 Mg/24 Hr Tdm) 1 patch TD DAILY [facility] Stop: 07/25/18 08:59 Last Admin: 05/29/18 09:16 Dose: 1 patch Senna (Senna) 8.6 mg PO DAILY [facility] Stop: 07/25/18 08:59 Last Admin: 05/29/18 08:56 Dose: 8.6 mg Vitamin D (Vitamin D3) 2,000 iu PO DAILY [facility] Stop: 07/25/18 08:59 Last Admin: 05/29/18 08:56 Dose: 2,000 iu Zolpidem Tartrate (Ambien) 5 mg PO HS PRN PRN Reason: Insomnia Stop: 07/24/18 23:04 Last Admin: 05/27/18 20:47 Dose: 5 mg General: other (confused) HEENT: NC/AT Neck: Supple Lungs: CTAB Cardiovascular: Normal S1, Normal S2 Abdomen: soft, non-tender Extremities: clear, edema Neurological: no change Internal Medicine Assmt/Plan - Assessment Assessment: dementia oa dm htn parkrinson's generalized weakness - Plan Plan: as per psych will monitor Nutritional Asmnt/Malnutr-PDOC - Dietary Evaluation Malnutrition Findings (Please click <Entered> for more info): Nutritional Asmnt/Malnutrition Start: 05/27/18 11: 21 Text: Status: Complete Freq: Protocol: Document 05/27/18 11:22 MEDINA (Rec: 05/27/18 11:41 [email or web address]) Nutritional Asmnt/Malnutrition Patient General Information Nutritional Screening Moderate Risk Diagnosis psychosis Pertinent Medical Hx/Surgical Hx HTN, Dm, dyslipidemia, PUD/ GERD, arthritis, dementia, parkinson's, bipolar Subjective Information Pt not seen in room at time of visit. Per EMR, PO intake 25- 75%. Current Diet Order/ Nutrition Support pureed Pertinent Medications colace, pepcid, novolog, novolin, cephulac, theragran, senna, vit D3 Pertinent Labs 05/26-05/27 POC 85-222 05/25 BUN 29, GLuocse 154 Nutritional Hx/Data Height 1.5 m Height (Calculated Centimeters) 149.9 Current Weight (lbs) 50.349 kg Weight (Calculated Kilograms) 50.3 Weight (Calculated Grams) 01319.8 [place] Body Weight 98 Body Mass Index (BMI) 22.4 Weight Status Approriate GI Symptoms GI Symptoms None Last BM not noted Difficult in: None Skin Integrity/Comment: redness Current %PO Fair (50-74%) Estimated Nutritional Goals BEE in Kcals: Using Current wt Calories/Kcals/Kg 25-30 Kcals Calculated 2438-4139 Protein: Using Current wt Protein g/k-1.2 Protein Calculated 50-60 Fluid: ml 1250-1500ml (1ml/kcal) Nutritional Problem 1. Problem Problem altered nutrition related labs Etiology hx of DM Signs/Symptoms: POC 85-222, GLuocse 154 Malnutrition Alert Is there a minimum of two criteria No selected? Query Text:Check all the applicable criteria. A minimum of two criteria are recommended for diagnosis of either severe or non-severe malnutrition. Malnutrition Related to Morbid Obesity Malnutrition related to morbid obesity No Intervention/Recommendation Comments 1. Continue with CCHO 60gm diet as ordered. MD to adjust insulin regimen for optimal glycemic control. 2. Monitor PO intake, wt, labs and skin integrity 3. F/U as low risk in 7 days, 06/03, PO check 05/30 Expected Outcomes/Goals Expected Outcomes/Goals 1. PO intake to meet at least 75% of nutritional needs. 2. Wt stability, skin to remain intact, labs to approach WNL.
--- NOTE | 2018-05-30 00:36 | Progress Notes ---
DATE: 05/29/2018 SUBJECTIVE: Chart reviewed and the patient interviewed. Also, discussed the patient's condition with the staff and reviewed records and labs. The patient is still easily agitated. The patient also is still in irritable and angry mood. The patient also continues argue with her roommate. She seems to be preoccupied. She also actively talking to herself. Otherwise, the patient is compliant with taking her medications with no side effect of medications. ASSESSMENT: The patient is still irritable and agitated and she still needs redirections and also need to work on her compliance with medications and her aggressive behavior. ASSESSMENT: The patient is still agitated and psychotic. TREATMENT PLAN: Continue to monitor her behavior and her condition closely. Also, continue to work on her irritable mood and inappropriate behavior and continue to follow up. JOB# [id number]
[2018-05-30] MEDS: INSULIN ASPART SLIDING SCALE 100 UNITS/ML UNIT SUBQ SCH ×4 (07:04→21:35)
[2018-05-30] MEDS: Vitamin D3 2,000 IU SGL PO SCH (08:47)
[2018-05-30] MEDS: Lactulose 10 Gm/15 mL 30mL UDC PO SCH (08:48)
[2018-05-30] MEDS: Rivastigmine 4.6 mg/24 hr Tdm TD SCH (08:50)
[2018-05-30] MEDS: Multivitamin Tab PO SCH (08:50)
[2018-05-30] MEDS: INSULIN HUMAN ISOPHANE (NPH) 100 UNITS/ML SUBQ SCH ×2 (08:54→17:27)
--- NOTE | 2018-05-31 00:57 | Progress Notes ---
DATE: 05/30/[address] Ya. Case was discussed with staff of the patient, reviewed records. SUBJECTIVE: This is an 82-year-old female who was transferred from [facility] because the patient has been extremely agitated. The patient has been throwing objects at other patients and towards the staff also has not been able to follow direction has been in very angry, irritable, mood and has been confused, angry, irritable with a history of dementia, unpredictable, impulsive, needing redirection, very poor insight. Unable to participate in meaningful conversation or make safe plan for self-care ____ agitated, angry. She argues with her roommate, preoccupied, talking to herself. She has been compliant with the medication with no side effects, no sedation, no nausea, no extrapyramidal symptoms. CURRENT MEDICATIONS: Include Remeron 50 mg at bedtime, Namenda 10 mg twice a day and we will continue outpatient group therapy, milieu therapy ____. JOB# [id number]
[2018-05-31] MEDS: INSULIN ASPART SLIDING SCALE 100 UNITS/ML UNIT SUBQ SCH ×4 (06:31→21:27)
[2018-05-31] MEDS: Vitamin D3 2,000 IU SGL PO SCH (08:58)
[2018-05-31] MEDS: Multivitamin Tab PO SCH (08:59)
[2018-05-31] MEDS: Lactulose 10 Gm/15 mL 30mL UDC PO SCH (09:00)
[2018-05-31] MEDS: Rivastigmine 4.6 mg/24 hr Tdm TD SCH (09:00)
[2018-05-31] MEDS: INSULIN HUMAN ISOPHANE (NPH) 100 UNITS/ML SUBQ SCH ×2 (09:11→17:13)
--- NOTE | 2018-05-31 14:01 | Internal Medicine Prog Note ---
Internal Medicine Subjective - Subjective Service Date: 05/31/18 Patient seen and examined:: with staff Patient is:: confused, other (irittable ,no signs of pain) Per staff patient has:: no adverse event Internal Medicine Objective - Results Result Diagrams: 05/25/18 20:40 05/25/18 20:40 Recent Labs: Laboratory Last Values WBC 11.7 Th/cmm (4.8-10.8) H 05/25/18 20:40 RBC 4.84 Mil/cmm (3.80-5.20) 05/25/18 20:40 Hgb 13.9 gm/dL (12-16) 05/25/18 20:40 Hct 41.9 % (41.0-60) 05/25/18 20:40 MCV 86.7 fl (81-100) 05/25/18 20:40 MCH 28.7 pg (27.0-31.0) 05/25/18 20:40 MCHC Differential 33.1 pg (28.0-36.0) 05/25/18 20:40 RDW 14.5 % (11.5-20.0) 05/25/18 20:40 Plt Count 232 Th/cmm (150-400) 05/25/18 20:40 MPV 9.1 fl 05/25/18 20:40 Neutrophils % 43.0 % (40.0-80.0) 05/25/18 20:40 Lymphocytes % 46.7 % (20.0-50.0) 05/25/18 20:40 Monocytes % 8.0 % (2.0-10.0) 05/25/18 20:40 Eosinophils % 1.8 % (0.0-5.0) 05/25/18 20:40 Basophils % 0.5 % (0.0-2.0) 05/25/18 20:40 Sodium 138 mEq/L (136-145) 05/25/18 20:40 Potassium 4.0 mEq/L (3.5-5.1) 05/25/18 20:40 Chloride 101 mEq/L (98-107) 05/25/18 20:40 Carbon Dioxide 25.7 mEq/L (21.0-31.0) 05/25/18 20:40 Anion Gap 15.3 (7.0-16.0) 05/25/18 20:40 BUN 29 mg/dL (7-25) H 05/25/18 20:40 Creatinine 0.8 mg/dL (0.6-1.2) 05/25/18 20:40 Est GFR ( Amer) TNP 05/25/18 20:40 Est GFR (Non-Af Amer) TNP 05/25/18 20:40 BUN/Creatinine Ratio 36.3 05/25/18 20:40 Glucose 154 mg/dL (70-105) H 05/25/18 20:40 POC Glucose 114 MG/DL (70 - 105) H 05/31/18 11:23 Calcium 10.7 mg/dL (8.6-10.3) H 05/25/18 20:40 Total Bilirubin 0.5 mg/dL (0.3-1.0) 05/25/18 20:40 AST 40 U/L (13-39) H 05/25/18 20:40 ALT 13 U/L (7-52) 05/25/18 20:40 Alkaline Phosphatase 66 U/L (34-104) 05/25/18 20:40 Troponin I 0.04 ng/mL (0.01-0.05) 05/25/18 20:40 Total Protein 7.4 gm/dL (6.0-8.3) 05/25/18 20:40 Albumin 4.2 gm/dL (3.7-5.3) 05/25/18 20:40 Globulin 3.2 gm/dL 05/25/18 20:40 Albumin/Globulin Ratio 1.3 (1.0-1.8) 05/25/18 20:40 Triglycerides 282 mg/dL (<150) H 05/25/18 20:40 Cholesterol 216 mg/dL (<200) H 05/25/18 20:40 LDL Cholesterol Direct 160 mg/dL (75-193) 05/25/18 20:40 HDL Cholesterol 54 mg/dL (23-92) 05/25/18 20:40 TSH 3.68 uIU/ml (0.34-5.60) 05/25/18 20:40 Salicylates < 25.0 mg/L (30.0-100.0) L 05/25/18 20:40 Acetaminophen < 10.0 ug/mL (10.0-30.0) L 05/25/18 20:40 Ethyl Alcohol < 10 mg/dL (0-10) 05/25/18 20:40 RPR NONREACTIVE (NONREACTIVE) 05/25/18 20:40 - Physical Exam Vitals and I&O: Vital Signs Temp 97.5 F 05/31/18 06:11 Pulse 74 05/31/18 06:11 Resp 18 05/31/18 06:11 BP 135/73 05/31/18 06:11 Pulse Ox 98 05/31/18 06:11 Intake & Output 05/30/18 05/31/18 05/31/18 18:59 06:59 18:59 Intake Total 850 120 Balance 850 120 Intake: Oral 850 120 Other: # Voids 4 3 # Bowel Movements 1 0 Active Medications: Current Medications Acetaminophen (Tylenol) 650 mg PO Q4HR PRN PRN Reason: Mild Pain / Temp above 100 Stop: 07/24/18 23:04 Bisacodyl (Dulcolax 10 Mg Supp) 10 mg RC DAILY PRN PRN Reason: Constipation Stop: 07/24/18 23:10 Carbidopa/Levodopa (Sinemet 25mg-100 Mg) 1 tab PO BID [facility] Stop: 07/25/18 08:59 Last Admin: 05/31/18 08:58 Dose: 1 tab Docusate Sodium (Colace) 100 mg PO BID [facility] Stop: 07/25/18 08:59 Last Admin: 05/31/18 08:59 Dose: 100 mg Famotidine (Pepcid) 20 mg PO BID [facility] Stop: 07/25/18 08:59 Last Admin: 05/31/18 09:00 Dose: 20 mg Insulin Aspart (Novolog Insulin Sliding Scale) 0 units SUBQ ACHS [facility]; Protocol Stop: 07/25/18 07:29 Last Admin: 05/31/18 06:31 Dose: 2 units Insulin Human NPH (Novolin N) 15 units SUBQ BID [facility]; Protocol Stop: 07/25/18 08:59 Last Admin: 05/31/18 09:11 Dose: 15 units Lactulose (Cephulac) 30 gm PO DAILY [facility] Stop: 07/25/18 08:59 Last Admin: 05/31/18 09:00 Dose: 30 gm Lorazepam (Ativan) 0.5 mg PO Q4H PRN; Protocol PRN Reason: Anxiety Stop: 07/24/18 23:04 Lorazepam (Ativan) 0.5 mg PO TID [facility]; Protocol Stop: 07/25/18 08:59 Last Admin: 05/31/18 08:59 Dose: 0.5 mg Magnesium Hydroxide (Milk Of Magnesia) 30 ml PO HS PRN PRN Reason: Constipation Memantine (Namenda) 10 mg PO BID [facility] Stop: 07/26/18 08:59 Last Admin: 05/31/18 09:00 Dose: 10 mg Mineral Oil (Fleet Mineral Oil) 135 ml RC Q48HR PRN PRN Reason: Constipation Stop: 07/24/18 23:10 Mirtazapine (Remeron) 15 mg PO HS [facility]; Protocol Stop: 07/25/18 20:59 Last Admin: 05/30/18 21:25 Dose: 15 mg Multivitamins/Vitamin C (Theragran) 1 tab PO DAILY [facility] Stop: 07/25/18 08:59 Last Admin: 05/31/18 08:59 Dose: 1 tab Risperidone (Risperdal) 0.5 mg PO HS [facility]; Protocol Stop: 07/27/18 20:59 Last Admin: 05/30/18 21:25 Dose: 0.5 mg Rivastigmine (Exelon 4.6 Mg/24 Hr Tdm) 1 patch TD DAILY [facility] Stop: 07/25/18 08:59 Last Admin: 05/31/18 09:00 Dose: 1 patch Senna (Senna) 8.6 mg PO DAILY [facility] Stop: 07/25/18 08:59 Last Admin: 05/31/18 08:59 Dose: 8.6 mg Vitamin D (Vitamin D3) 2,000 iu PO DAILY [facility] Stop: 07/25/18 08:59 Last Admin: 05/31/18 08:58 Dose: 2,000 iu Zolpidem Tartrate (Ambien) 5 mg PO HS PRN PRN Reason: Insomnia Stop: 07/24/18 23:04 Last Admin: 05/31/18 00:30 Dose: 5 mg General: other (confused) HEENT: NC/AT Neck: Supple Lungs: CTAB Cardiovascular: Normal S1, Normal S2 Abdomen: soft, non-tender Extremities: clear, edema Neurological: no change Internal Medicine Assmt/Plan - Assessment Assessment: dementia oa dm htn parkrinson's generalized weakness - Plan Plan: cpm Nutritional Asmnt/Malnutr-PDOC - Dietary Evaluation Malnutrition Findings (Please click <Entered> for more info): Nutritional Asmnt/Malnutrition Start: 05/27/18 11: 21 Text: Status: Complete Freq: Protocol: Document 05/27/18 11:22 LCHENG (Rec: 05/27/18 11:41 [email or web address] [email or web address]) Nutritional Asmnt/Malnutrition Patient General Information Nutritional Screening Moderate Risk Diagnosis psychosis Pertinent Medical Hx/Surgical Hx HTN, Dm, dyslipidemia, PUD/ GERD, arthritis, dementia, parkinson's, bipolar Subjective Information Pt not seen in room at time of visit. Per EMR, PO intake 25- 75%. Current Diet Order/ Nutrition Support pureed Pertinent Medications colace, pepcid, novolog, novolin, cephulac, theragran, senna, vit D3 Pertinent Labs 05/26-05/27 POC 85-222 05/25 BUN 29, GLuocse 154 Nutritional Hx/Data Height 4 ft 11 in Height (Calculated Centimeters) 149.9 Current Weight (lbs) 111 lb Weight (Calculated Kilograms) 50.3 Weight (Calculated Grams) 72779.8 [place] Body Weight 98 Body Mass Index (BMI) 22.4 Weight Status Approriate GI Symptoms GI Symptoms None Last BM not noted Difficult in: None Skin Integrity/Comment: redness Current %PO Fair (50-74%) Estimated Nutritional Goals BEE in Kcals: Using Current wt Calories/Kcals/Kg 25-30 Kcals Calculated 8405-5784 Protein: Using Current wt Protein g/k-1.2 Protein Calculated 50-60 Fluid: ml 1250-1500ml (1ml/kcal) Nutritional Problem 1. Problem Problem altered nutrition related labs Etiology hx of DM Signs/Symptoms: POC 85-222, GLuocse 154 Malnutrition Alert Is there a minimum of two criteria No selected? Query Text:Check all the applicable criteria. A minimum of two criteria are recommended for diagnosis of either severe or non-severe malnutrition. Malnutrition Related to Morbid Obesity Malnutrition related to morbid obesity No Intervention/Recommendation Comments 1. Continue with CCHO 60gm diet as ordered. MD to adjust insulin regimen for optimal glycemic control. 2. Monitor PO intake, wt, labs and skin integrity 3. F/U as low risk in 7 days, 06/03, PO check 05/30 Expected Outcomes/Goals Expected Outcomes/Goals 1. PO intake to meet at least 75% of nutritional needs. 2. Wt stability, skin to remain intact, labs to approach WNL.
--- NOTE | 2018-06-01 | Progress Notes ---
DATE: 05/31/2018 Case was discussed with staff of the patient, reviewed records. The patient was combative today. She is demented, confused, unable to make safe plan for self-care. Continues to have episodes of severe agitation, argumentative with her roommate. Continues to be internally preoccupied. Continues to be unable to make safe plan for self-care or participate in meaningful conversation. No side effects of the medication, no sedation, no nausea and we will continue outpatient group therapy, milieu therapy, and adjust medications as needed. JOB# [id number]
[2018-06-01] MEDS: INSULIN ASPART SLIDING SCALE 100 UNITS/ML UNIT SUBQ SCH ×4 (06:49→20:15)
[2018-06-01] MEDS: Lactulose 10 Gm/15 mL 30mL UDC PO SCH (08:29)
[2018-06-01] MEDS: Vitamin D3 2,000 IU SGL PO SCH (08:31)
[2018-06-01] MEDS: Multivitamin Tab PO SCH (08:32)
[2018-06-01] MEDS: Rivastigmine 4.6 mg/24 hr Tdm TD SCH (08:33)
[2018-06-01] MEDS: INSULIN HUMAN ISOPHANE (NPH) 100 UNITS/ML SUBQ SCH ×2 (08:47→17:15)
--- NOTE | 2018-06-01 14:48 | Internal Medicine Prog Note ---
Internal Medicine Subjective - Subjective Service Date: 06/01/18 Patient is:: confused, other (irittable ,no signs of pain) Per staff patient has:: no adverse event Internal Medicine Objective - Results Result Diagrams: 05/25/18 20:40 05/25/18 20:40 Recent Labs: Laboratory Last Values WBC 11.7 Th/cmm (4.8-10.8) H 05/25/18 20:40 RBC 4.84 Mil/cmm (3.80-5.20) 05/25/18 20:40 Hgb 13.9 gm/dL (12-16) 05/25/18 20:40 Hct 41.9 % (41.0-60) 05/25/18 20:40 MCV 86.7 fl (81-100) 05/25/18 20:40 MCH 28.7 pg (27.0-31.0) 05/25/18 20:40 MCHC Differential 33.1 pg (28.0-36.0) 05/25/18 20:40 RDW 14.5 % (11.5-20.0) 05/25/18 20:40 Plt Count 232 Th/cmm (150-400) 05/25/18 20:40 MPV 9.1 fl 05/25/18 20:40 Neutrophils % 43.0 % (40.0-80.0) 05/25/18 20:40 Lymphocytes % 46.7 % (20.0-50.0) 05/25/18 20:40 Monocytes % 8.0 % (2.0-10.0) 05/25/18 20:40 Eosinophils % 1.8 % (0.0-5.0) 05/25/18 20:40 Basophils % 0.5 % (0.0-2.0) 05/25/18 20:40 Sodium 138 mEq/L (136-145) 05/25/18 20:40 Potassium 4.0 mEq/L (3.5-5.1) 05/25/18 20:40 Chloride 101 mEq/L (98-107) 05/25/18 20:40 Carbon Dioxide 25.7 mEq/L (21.0-31.0) 05/25/18 20:40 Anion Gap 15.3 (7.0-16.0) 05/25/18 20:40 BUN 29 mg/dL (7-25) H 05/25/18 20:40 Creatinine 0.8 mg/dL (0.6-1.2) 05/25/18 20:40 Est GFR ( Amer) TNP 05/25/18 20:40 Est GFR (Non-Af Amer) TNP 05/25/18 20:40 BUN/Creatinine Ratio 36.3 05/25/18 20:40 Glucose 154 mg/dL (70-105) H 05/25/18 20:40 POC Glucose 74 MG/DL (70 - 105) 06/01/18 06:46 Calcium 10.7 mg/dL (8.6-10.3) H 05/25/18 20:40 Total Bilirubin 0.5 mg/dL (0.3-1.0) 05/25/18 20:40 AST 40 U/L (13-39) H 05/25/18 20:40 ALT 13 U/L (7-52) 05/25/18 20:40 Alkaline Phosphatase 66 U/L (34-104) 05/25/18 20:40 Troponin I 0.04 ng/mL (0.01-0.05) 05/25/18 20:40 Total Protein 7.4 gm/dL (6.0-8.3) 05/25/18 20:40 Albumin 4.2 gm/dL (3.7-5.3) 05/25/18 20:40 Globulin 3.2 gm/dL 05/25/18 20:40 Albumin/Globulin Ratio 1.3 (1.0-1.8) 05/25/18 20:40 Triglycerides 282 mg/dL (<150) H 05/25/18 20:40 Cholesterol 216 mg/dL (<200) H 05/25/18 20:40 LDL Cholesterol Direct 160 mg/dL (75-193) 05/25/18 20:40 HDL Cholesterol 54 mg/dL (23-92) 05/25/18 20:40 TSH 3.68 uIU/ml (0.34-5.60) 05/25/18 20:40 Salicylates < 25.0 mg/L (30.0-100.0) L 05/25/18 20:40 Acetaminophen < 10.0 ug/mL (10.0-30.0) L 05/25/18 20:40 Ethyl Alcohol < 10 mg/dL (0-10) 05/25/18 20:40 RPR NONREACTIVE (NONREACTIVE) 05/25/18 20:40 - Physical Exam Vitals and I&O: Vital Signs Temp 97.3 F 06/01/18 06:14 Pulse 55 06/01/18 06:14 Resp 18 06/01/18 06:14 BP 127/62 06/01/18 06:14 Pulse Ox 95 06/01/18 06:14 Intake & Output 05/31/18 06/01/18 06/01/18 18:59 06:59 18:59 Intake Total 240 Balance 240 Intake: Oral 240 Other: # Voids 2 2 # Bowel Movements 0 1 Active Medications: Current Medications Acetaminophen (Tylenol) 650 mg PO Q4HR PRN PRN Reason: Mild Pain / Temp above 100 Stop: 07/24/18 23:04 Bisacodyl (Dulcolax 10 Mg Supp) 10 mg RC DAILY PRN PRN Reason: Constipation Stop: 07/24/18 23:10 Carbidopa/Levodopa (Sinemet 25mg-100 Mg) 1 tab PO BID [facility] Stop: 07/25/18 08:59 Last Admin: 06/01/18 08:30 Dose: 1 tab Docusate Sodium (Colace) 100 mg PO BID [facility] Stop: 07/25/18 08:59 Last Admin: 06/01/18 08:32 Dose: 100 mg Famotidine (Pepcid) 20 mg PO BID [facility] Stop: 07/25/18 08:59 Last Admin: 06/01/18 08:32 Dose: 20 mg Insulin Aspart (Novolog Insulin Sliding Scale) 0 units SUBQ ACHS [facility]; Protocol Stop: 07/25/18 07:29 Last Admin: 06/01/18 12:04 Dose: Not Given Insulin Human NPH (Novolin N) 15 units SUBQ BID [facility]; Protocol Stop: 07/25/18 08:59 Last Admin: 06/01/18 08:47 Dose: 15 units Lactulose (Cephulac) 30 gm PO DAILY [facility] Stop: 07/25/18 08:59 Last Admin: 06/01/18 08:29 Dose: 30 gm Lorazepam (Ativan) 0.5 mg PO Q4H PRN; Protocol PRN Reason: Anxiety Stop: 07/24/18 23:04 Lorazepam (Ativan) 0.5 mg PO TID [facility]; Protocol Stop: 07/25/18 08:59 Last Admin: 06/01/18 08:31 Dose: 0.5 mg Magnesium Hydroxide (Milk Of Magnesia) 30 ml PO HS PRN PRN Reason: Constipation Memantine (Namenda) 10 mg PO BID [facility] Stop: 07/26/18 08:59 Last Admin: 06/01/18 09:11 Dose: Not Given Mineral Oil (Fleet Mineral Oil) 135 ml RC Q48HR PRN PRN Reason: Constipation Stop: 07/24/18 23:10 Mirtazapine (Remeron) 15 mg PO HS [facility]; Protocol Stop: 07/25/18 20:59 Last Admin: 05/31/18 21:06 Dose: 15 mg Multivitamins/Vitamin C (Theragran) 1 tab PO DAILY [facility] Stop: 07/25/18 08:59 Last Admin: 06/01/18 08:32 Dose: 1 tab Risperidone (Risperdal) 0.5 mg PO HS [facility]; Protocol Stop: 07/27/18 20:59 Last Admin: 05/31/18 21:06 Dose: 0.5 mg Rivastigmine (Exelon 4.6 Mg/24 Hr Tdm) 1 patch TD DAILY [facility] Stop: 07/25/18 08:59 Last Admin: 06/01/18 08:33 Dose: 1 patch Senna (Senna) 8.6 mg PO DAILY [facility] Stop: 07/25/18 08:59 Last Admin: 06/01/18 08:30 Dose: 8.6 mg Vitamin D (Vitamin D3) 2,000 iu PO DAILY [facility] Stop: 07/25/18 08:59 Last Admin: 06/01/18 08:31 Dose: 2,000 iu Zolpidem Tartrate (Ambien) 5 mg PO HS PRN PRN Reason: Insomnia Stop: 07/24/18 23:04 Last Admin: 05/31/18 00:30 Dose: 5 mg General: other (confused) HEENT: NC/AT Neck: Supple Lungs: CTAB Cardiovascular: Normal S1, Normal S2 Abdomen: soft, non-tender Extremities: clear, edema Neurological: no change Internal Medicine Assmt/Plan - Assessment Assessment: dementia oa dm htn parkrinson's generalized weakness - Plan Plan: cpm Nutritional Asmnt/Malnutr-PDOC - Dietary Evaluation Malnutrition Findings (Please click <Entered> for more info): Nutritional Asmnt/Malnutrition Start: 05/27/18 11: 21 Text: Status: Complete Freq: Protocol: Document 05/27/18 11:22 ASHERG (Rec: 05/27/18 11:41 [id number]) Nutritional Asmnt/Malnutrition Patient General Information Nutritional Screening Moderate Risk Diagnosis psychosis Pertinent Medical Hx/Surgical Hx HTN, Dm, dyslipidemia, PUD/ GERD, arthritis, dementia, parkinson's, bipolar Subjective Information Pt not seen in room at time of visit. Per EMR, PO intake 25- 75%. Current Diet Order/ Nutrition Support pureed Pertinent Medications colace, pepcid, novolog, novolin, cephulac, theragran, senna, vit D3 Pertinent Labs 05/26-05/27 POC 85-222 05/25 BUN 29, [place] 154 Nutritional Hx/Data Height 4 ft 11 in Height (Calculated Centimeters) 149.9 Current Weight (lbs) 111 lb Weight (Calculated Kilograms) 50.3 Weight (Calculated Grams) 94170.8 [place] Body Weight 98 Body Mass Index (BMI) 22.4 Weight Status Approriate GI Symptoms GI Symptoms None Last BM not noted Difficult in: None Skin Integrity/Comment: redness Current %PO Fair (50-74%) Estimated Nutritional Goals BEE in Kcals: Using Current wt Calories/Kcals/Kg 25-30 Kcals Calculated 5161-3551 Protein: Using Current wt Protein g/k-1.2 Protein Calculated 50-60 Fluid: ml 1250-1500ml (1ml/kcal) Nutritional Problem 1. Problem Problem altered nutrition related labs Etiology hx of DM Signs/Symptoms: POC 85-222, [place] 154 Malnutrition Alert Is there a minimum of two criteria No selected? Query Text:Check all the applicable criteria. A minimum of two criteria are recommended for diagnosis of either severe or non-severe malnutrition. Malnutrition Related to Morbid Obesity Malnutrition related to morbid obesity No Intervention/Recommendation Comments 1. Continue with CCHO 60gm diet as ordered. MD to adjust insulin regimen for optimal glycemic control. 2. Monitor PO intake, wt, labs and skin integrity 3. F/U as low risk in 7 days, 06/03, PO check 05/30 Expected Outcomes/Goals Expected Outcomes/Goals 1. PO intake to meet at least 75% of nutritional needs. 2. Wt stability, skin to remain intact, labs to approach WNL.
--- NOTE | 2018-06-02 00:33 | Progress Notes ---
DATE: 06/01/2018 PSYCHIATRIC PROGRESS NOTE SUBJECTIVE: Chart reviewed and the patient interviewed. Also discussed the patient's condition with the staff and reviewed records and labs. The patient is still depressed and is still guarded and anxious. The patient also is withdrawn and stays by herself most of the night. She also is still feeling hopeless and helpless and wants to be left alone. Otherwise, the patient is compliant with medications. Also at times refused to take medications. ASSESSMENT: The patient is still agitated and still needs close monitoring. TREATMENT PLAN: We will continue monitoring behavior and condition closely. Also, continue adjusting psychotropic medications and follow up closely. JOB# [id number]
[2018-06-02] MEDS: INSULIN ASPART SLIDING SCALE 100 UNITS/ML UNIT SUBQ SCH ×4 (06:54→21:43)
[2018-06-02] MEDS: Lactulose 10 Gm/15 mL 30mL UDC PO SCH (09:21)
[2018-06-02] MEDS: Vitamin D3 2,000 IU SGL PO SCH (09:21)
[2018-06-02] MEDS: Multivitamin Tab PO SCH (09:22)
[2018-06-02] MEDS: Rivastigmine 4.6 mg/24 hr Tdm TD SCH (09:23)
[2018-06-02] MEDS: INSULIN HUMAN ISOPHANE (NPH) 100 UNITS/ML SUBQ SCH ×2 (09:40→17:29)
--- NOTE | 2018-06-03 06:06 | Progress Notes ---
DATE: 06/02/2018 SUBJECTIVE: Chart reviewed and the patient interviewed. Also discussed the patient's condition with the staff and reviewed records and labs. The patient slept slightly better and she seems to be slightly calmer than before. Also, her agitation and her irritability is less than before. The patient also is still not yelling and not screaming like before. She also is interacting more and she is compliant with taking her medications. ASSESSMENT: The patient is less agitated. TREATMENT PLAN: Continue to monitor her behavior and her condition closely. Also, continue to work on her ineffective coping and on her behavioral issue as well as discharge plans. JOB# [id number]
[2018-06-03] MEDS: INSULIN ASPART SLIDING SCALE 100 UNITS/ML UNIT SUBQ SCH ×2 (06:51→12:10)
[2018-06-03] MEDS: Rivastigmine 4.6 mg/24 hr Tdm TD SCH (08:44)
[2018-06-03] MEDS: Vitamin D3 2,000 IU SGL PO SCH (08:46)
[2018-06-03] MEDS: Multivitamin Tab PO SCH (08:47)
[2018-06-03] MEDS: Lactulose 10 Gm/15 mL 30mL UDC PO SCH (08:47)
[2018-06-03] MEDS: INSULIN HUMAN ISOPHANE (NPH) 100 UNITS/ML SUBQ SCH (09:01)
--- NOTE | 2018-06-05 16:53 | Discharge Summary ---
DATE OF DISCHARGE: 06/03/2018 FINAL/PRIMARY DIAGNOSIS: Unspecified psychosis. SECONDARY DIAGNOSIS: Dementia, moderate to severe, with psychotic features and behavioral disturbances. MEDICAL DIAGNOSES: 1. Hypertension. 2. Parkinson's disease. 3. Diabetes mellitus. 4. Generalized weakness. REASON FOR HOSPITALIZATION: The patient was admitted to the hospital from [facility] because of extreme agitation and she was throwing objects or other patients and staff. HOSPITAL COURSE: The patient continued to be in angry and in irritable mood. She also was severely agitated. The patient needed lots of redirections. The patient was started on Risperdal and dose adjusted to 0.5 mg at bedtime. The patient's affect was brighter. The patient also continued to take Remeron at a dose of 50 mg at bedtime and Namenda in a dose of 10 mg twice a day. Gradually, the patient's affect was brighter. The patient was calmer and was able to follow directions. The patient was not as aggressive and the patient was discharged from the hospital. Physical examination came as mentioned under final diagnosis. No major medical problems while in the hospital. Also, labs were monitored closely. After discharge plans, the patient discharged from the hospital and went to [place] with plans for followup there. EXPECTED OUTCOME AFTER DISCHARGE: Fair if the patient continues to take her psychotropic medications and follow up with discharge plans. [facility]# [id number]
== END 2018-06-03 16:05 | DRG 885 ==
LOC: ER 19:47 → GERO 21:50
PROVIDERS: ADMIT Psychiatry & Neurology Psychiatry; ATTEND Psychiatry & Neurology Psychiatry
DX: F29 Unspecified psychosis not due to a substance or known physiological condition (principal); F02.81 Dementia in other diseases classified elsewhere, unspecified severity, with behavioral disturbance; K21.9 Gastro-esophageal reflux disease without esophagitis; E11.9 Type 2 diabetes mellitus without complications; G20 Parkinson's disease; M19.90 Unspecified osteoarthritis, unspecified site; I10 Essential (primary) hypertension; R53.1 Weakness; E78.5 Hyperlipidemia, unspecified; Z83.3 Family history of diabetes mellitus; Z82.49 Family history of ischemic heart disease and other diseases of the circulatory system; Z88.7 Allergy status to serum and vaccine
CPT/HCPCS: 36415-UA; 80053-TC; 80061-TC; 80320-TC; 80329-TC; 82948-90; 83036-90; 84443-TC; 84484-TC; 85025-TC; 86592-TC; J1815; Z7610